=== PATIENT | female | born 1970 | race Caucasian/White ===

== ENCOUNTER 2016-12-03 23:37 | Emergency (ER) | payer SELFPAY ==
[~2016-12-03] VITALS: Ht 162.6 cm; Wt 117.9 kg
[2016-12-04 00:43] LABS: BASO # 0.1 x10^3/uL (0.0-0.2); BASO % 1 % (0-3); EOS % 2 % (0-3); HEMATOCRIT 40.4 % (36.0-47.0); HEMOGLOBIN 13.6 g/dL (12.0-15.5); LYMPH # 2.4 x10^3/uL (1.0-4.8); LYMPH % 25 % (24-48); MEAN CORPUSCULAR HEMOGLOBIN 31 pg (25-35); MEAN CORPUSCULAR HGB CONC 34 g/dL (31-37); MEAN CORPUSCULAR VOLUME 91 fL (79-100); MONO % 4 % (0-9); NEUT % 68 % (31-73); PLATELET COUNT 265 x10^3/uL (140-400); RED BLOOD COUNT 4.43 x10^6/uL (3.50-5.40); RED CELL DISTRIBUTION WIDTH 14.3 % (11.5-14.5); WHITE BLOOD COUNT 9.6 x10^3/uL (4.0-11.0)
[2016-12-04 00:44] LABS: BILIRUBIN,URINE NEGATIVE (NEG); GLUCOSE,URINE NEGATIVE (NEG); NITRITE,URINE NEGATIVE (NEG); PROTEIN,URINE NEGATIVE (NEG-TRACE); UROBILINOGEN,URINE 0.2 mg/dL (0.2 mg/dL)
[2016-12-04] MEDS ORDERED: MECLIZINE HCL 12.5 MG TABLET. PO ONE (00:45)
[2016-12-04] MEDS ORDERED: IPRATRPIUM/ALBUTEROL 0.5/2.5MG 3 ML NEBU. NEB ONE (00:45)
[2016-12-04 00:51] LABS: BACTERIA,URINE FEW /HPF (0-FEW); SQUAMOUS EPITHELIAL CELL,UR FEW /LPF
[2016-12-04 01:03] LABS: CALCIUM 8.8 mg/dL (8.5-10.1); CREATININE 0.8 mg/dL (0.6-1.0); GFR 77.2; POTASSIUM 4.3 mmol/L (3.5-5.1)
--- NOTE | 2016-12-04 01:10 | PHYS DOC ---
Past Medical History Past Medical History: Asthma, Diabetes-Type II Additional Past Medical Histor: obesity; seasonal allergies; vertigo Past Surgical History: Cholecystectomy, , Hysterectomy Additional Past Surgical Histo: c ection x 5, Smoking: Cigarettes Alcohol Use: None Drug Use: None Adult General Chief Complaint Chief Complaint: DIZZY/LIGHT HEADED HPI HPI Patient is a 46 year old female who presents with dizziness. She developed dizziness on Saturday. Intermittent periods worsens she standing and moving her head. Dull headache over her sinuses in the front. Pain is a 4-5. No nausea vomiting. Feels vertigo which is what she's had before. No change in her vision or double vision. No numbness to that or weakness to arms or legs or face. No difficulty walking. No following. She has noted increased problems with her seasonal allergies in her sinuses. No chest pain. She has increased and wheezing from her asthma. She does continue to smoke tobacco. She was an argument tonight with her significant other when this became acutely worse. Review of Systems Review of Systems Constitutional: Denies fever or chills Eyes: Denies change in visual acuity, redness, or eye pain HENT: POS nasal congestion and sinus pressure; NO sore throat Respiratory: Denies cough; POS shortness of breath and wheezing. Cardiovascular: No chest pain GI: Denies abdominal pain, nausea, vomiting, bloody stools or diarrhea : Denies dysuria or hematuria Musculoskeletal: Denies back pain or joint pain Integument: Denies rash or skin lesions Neurologic: POS frontal headache, NO focal weakness or sensory changes; NO syncope or seizure. Current Medications Current Medications Current Medications Medications (Trade) Dose Ordered Sig/Hayden Start Time Stop Time Status Last Admin Dose Admin Albuterol/ Ipratropium (Duoneb) 3 ml 1X ONCE 12/04/16 00:45 12/04/16 00:46 DC 12/04/16 00:44 3 ML Meclizine HCl (Antivert) 25 mg 1X ONCE 12/04/16 00:45 12/04/16 00:46 DC 12/04/16 00:51 25 MG Allergies Allergies Allergies Coded Allergies Type Severity Reaction Last Updated Verified Penicillins Allergy Intermediate Nausea and Vomiting 10/10/15 Yes Sulfa (Sulfonamide Antibiotics) Allergy Intermediate Nausea and Vomiting Yes doxycycline Allergy Intermediate Nausea and Vomiting 10/10/15 Yes Physical Exam Physical Exam Constitutional: Well developed, well nourished, no acute distress, non-toxic appearance. Ambulated without difficulty HENT: Normocephalic, atraumatic, tympanic membranes slightly dull bilaterally but no erythema. Bilateral external ears normal, oropharynx moist, no oral exudates, nose normal. Eyes: PERRLA, EOMI, conjunctiva normal, no discharge. Neck: Normal range of motion, no tenderness, supple, no stridor. No carotid bruits. Cardiovascular:Heart rate regular rhythm, no murmur Lungs & Thorax: Bilateral breath sounds with wheezing bilaterally. Moderate air flow. Abdomen: Bowel sounds normal, soft, no tenderness, no masses, no pulsatile masses. Skin: Warm, dry, no erythema, no rash. Back: No tenderness, no CVA tenderness. Extremities: No tenderness, no cyanosis, no clubbing, ROM intact, no edema. Neurologic: Alert and oriented X 3, normal motor function, normal sensory function, no focal deficits noted. Cranial nerves II through XII are grossly intact. No ataxia noted on finger to nose or heel to abbott. NIH stroke scale 0 Psychologic: Affect normal, judgement normal, mood normal. Current Patient Data Vital Signs Vital Signs Date Time Temp Pulse Resp B/P (MAP) Pulse Ox O2 Delivery O2 Flow Rate FiO2 12/04/16 01:30 79 18 94 12/04/16 00:05 97.8 125/60 (81) Room Air 97.8 Lab Values Laboratory Tests Test 12/04/16 00:15 12/04/16 00:35 Urine Collection Type Unknown Urine Color Yellow Urine Clarity Clear Urine pH 6.0 Urine Specific [place] <=1.005 Urine Protein Negative mg/dL (NEG-TRACE) Urine Glucose (UA) Negative mg/dL (NEG) Urine Ketones (Stick) Negative mg/dL (NEG) Urine Blood Moderate (NEG) Urine Nitrite Negative (NEG) Urine Bilirubin Negative (NEG) Urine Urobilinogen Dipstick 0.2 mg/dL (0.2 mg/dL) Urine Leukocyte Esterase Small (NEG) Urine RBC 1-2 /HPF (0-2) Urine WBC 5-10 /HPF (0-4) Urine Squamous Epithelial Cells Few /LPF Urine Bacteria Few /HPF (0-FEW) White Blood Count 9.6 x10^3/uL (4.0-11.0) Red Blood Count 4.43 x10^6/uL (3.50-5.40) Hemoglobin 13.6 g/dL (12.0-15.5) Hematocrit 40.4 % (36.0-47.0) Mean Corpuscular Volume 91 fL (79-100) Mean Corpuscular Hemoglobin 31 pg (25-35) Mean Corpuscular Hemoglobin Concent 34 g/dL (31-37) Red Cell Distribution Width 14.3 % (11.5-14.5) Platelet Count 265 x10^3/uL (140-400) Neutrophils (%) (Auto) 68 % (31-73) Lymphocytes (%) (Auto) 25 % (24-48) Monocytes (%) (Auto) 4 % (0-9) Eosinophils (%) (Auto) 2 % (0-3) Basophils (%) (Auto) 1 % (0-3) Neutrophils # (Auto) 6.5 x10^3uL (1.8-7.7) Lymphocytes # (Auto) 2.4 x10^3/uL (1.0-4.8) Monocytes # (Auto) 0.4 x10^3/uL (0.0-1.1) Eosinophils # (Auto) 0.2 x10^3/uL (0.0-0.7) Basophils # (Auto) 0.1 x10^3/uL (0.0-0.2) Sodium Level 136 mmol/L (136-145) Potassium Level 4.3 mmol/L (3.5-5.1) Chloride Level 101 mmol/L (98-107) Carbon Dioxide Level 27 mmol/L (21-32) Anion Gap 8 (6-14) Blood Urea Nitrogen 8 mg/dL (7-20) Creatinine 0.8 mg/dL (0.6-1.0) Estimated GFR (Cockcroft-Gault) 77.2 Glucose Level 211 mg/dL (70-99) H Calcium Level 8.8 mg/dL (8.5-10.1) Creatine Kinase 131 U/L (26-192) Creatine Kinase MB (Mass) < 0.5 ng/mL (0.0-3.6) Creatine Kinase MB Relative Index 0.4 % (0-4) Troponin I Quantitative < 0.017 ng/mL (0.000-0.055) PP-Azk-I-Type Natriuretic Peptide 75 pg/mL (0-124) Laboratory Tests 12/04/16 00:35 Laboratory Tests 12/04/16 00:35 EKG EKG EKG interpreted by myself at 0008 AM with normal sinus rhythm rate of 78. Nonspecific ST changes; no acute ST elevation. Radiology/Procedures Radiology/Procedures CXR interpreted by myself at 0125 am: Normal mediastinum, normal cardiac silhouette, normal lung senior, no pleural effusion, no infiltrate, no pneumothorax. [facility] [address] [place] [address] IMAGING REPORT Signed PATIENT: CHARISMA BARRAGAN ACCOUNT: [id number] : 1970 LOCATION: ER AGE: 46 SEX: F EXAM STATUS: REG ER ORD. PHYSICIAN: FLO MADRIGAL MD REASON: dizzy; sinusitits PROCEDURE: CT HEAD AND MAXILLOFACIAL WO CT HEAD AND MAXILLOFACIAL WO dated 12/04/2016 12:25 AM Indication: Dizziness.dizzy; sinusitits. Comparison: No comparison is available. Technique: Contiguous axial imaging the head was performed from skull base to vertex. In addition, axial imaging of the maxillofacial bones obtained with thin cut coronal and sagittal reconstruction. One or more of the following individualized dose reduction techniques were utilized for this examination: 1. Automated exposure control 2. Adjustment of the mA and/or kV according to patient size 3. Use of iterative reconstruction technique Findings: Ventricles and sulci are within normal limits for age. No midline shift or mass effect. Brain parenchyma is of normal attenuation. No hemorrhage or extra-axial collection. Posterior fossa and brainstem unremarkable. Asymmetric soft tissue density filling the right nasal cavity with distortion of the middle and inferior turbinates. Mild nasal septal deviation to the left. No bony destructive changes. The ostiomeatal units and infundibula are patent. No significant mucosal thickening or air-fluid level. Mastoid air cells and middle ears are clear. No significant soft tissue abnormality. IMPRESSION HEAD: 1. No evidence of acute intracranial hemorrhage or mass. IMPRESSION MAXILLOFACIAL: 1. Soft tissue density filling the right-sided nasal cavity, indeterminate. This could represent a large polyp or other nasal mass. Recommend physical exam correlation. 2. Mild nasal septal deviation to the left. 3. Otherwise no significant sinus disease. Electronically signed by: Tramaine Flower MD (12/04/2016 1:42 AM) [facility] DICTATED and SIGNED BY: TRAMAINE FLOWER MD DATE: 12/04/16 0139 CC: FLO MADRIGAL MD; UNKNOWN PCP NAME ~ Course & Med Decision Making Course & Med Decision Making Evaluated patient. Findings consistent with vertigo. NIHSS 0. CT ordered. UA is mildly positive. Duoneb given due to wheezing. Antivert dosed for vertigo ( patient has a ride). At [address] scanner. At 0155 AM: Ct results back. Head is negative and no sinuses (polyp noted). Does not meet criteria for antibiotics. Will place on antivert with follow up. Note: Urinalysis is mildly positive however patient has no symptoms. We'll hold on any antibiotic therapy at this point due to her multiple medical allergies. If she develops any symptoms well need repeat urinalysis. My differential diagnosis for dizziness sinusitis, vertigo, CVA, subarachnoid hemorrhage, cardiac arrthymia, pulmonary emboli, electrolyte disturbance, infection I have spoken with the patient and/or caregivers. I have explained the patient' s condition, diagnosis and treatment plan based on the information available to me at this time. I have answered the patient's and/or caregiver's questions and addressed any concerns. The patient and/or caregivers have as good an understanding of the patient's diagnosis, condition and treatment plan as can be expected at this point. The patient's condition is stable and appropriate for discharge from the emergency department. The patient will pursue further outpatient evaluation with the primary care physician or other designated or consulting physician as outlined in the discharge instructions. The patient and/or caregivers are agreeable to this plan of care and follow-up instructions have been explained in detail. The patient and/or caregivers have received these instructions in written format and have expressed an understanding of the discharge instructions. The patient and/or caregivers are aware that any significant change in condition or worsening of symptoms should prompt an immediate return to this or the closest emergency department or a call to 911. [place] Disclaimer Dragon Disclaimer This electronic medical record was generated, in whole or in part, using a voice recognition dictation system. Departure Departure Impression: Primary Impression: Vertigo Disposition: 01 HOME, SELF-CARE Condition: STABLE Referrals: UNKNOWN PCP NAME (PCP) Patient Instructions: Vertigo Scripts Meclizine Hcl (MECLIZINE HCL) 25 Mg Tablet 1 TAB PO PRN TID, #30 TAB Prov: FLO MADRIGAL MD 12/04/16 NIHSS NIHSS Administer stroke scale items in the order listed. Record performance in each category after each subscale exam. Do not go back and change scores. Follow directions provided for each exam technique. Scores should reflect what the patient does, not what the clinician thinks the patient can do. The clinician should record answers while administering the exam and work quickly. Except where indicated, the patient should not be coached (i.e., repeated requests to patient to make a special effort). PERFORMED AT 0030 AM by MYSELF (Dr Madrigal) 1a. Level of Consciousness: The shopping investigator must choose a response if a full evaluation is prevented by such obstacles as an endotracheal tube, language barrier, orotracheal trauma/bandages. A 3 is scored only if the patient makes no movement (other than reflexive posturing) in response to noxious stimulation. 0 = Alert; keenly responsive. 1 = Not alert; but arousable by minor stimulation to obey, answer, or respond. 2 = Not alert; requires repeated stimulation to attend, or is obtunded and requires strong or painful stimulation to make movements (not stereotyped). 3 = Responds only with reflex motor or autonomic effects or totally unresponsive, flaccid, and areflexic. 1b. LOC Questions: The patient is asked the month and his/her age. The answer must be correct - there is no partial credit for being close. Aphasic and stuporous patients who do not comprehend the questions will score 2. Patients unable to speak because of endotracheal intubation, orotracheal trauma, severe dysarthria from any cause, language barrier, or any other problem not secondary to aphasia are given a 1. It is important that only the initial answer be graded and that the examiner not "help" the patient with verbal or non-verbal cues. 0 = Answers both questions correctly. 1 = Answers one question correctly. 2 = Answers neither question correctly. 1c. LOC Commands: The patient is asked to open and close the eyes and then to audit consultant and release the non-paretic hand. Substitute another one step command if the hands cannot be used. Credit is given if an unequivocal attempt is made but not completed due to weakness. If the patient does not respond to command, the task should be demonstrated to him or her (pantomime), and the result scored (i.e., follows none, one or two commands). Patients with trauma, amputation, or other physical impediments should be given suitable one-step commands. Only the first attempt is scored. 0 = Performs both tasks correctly. 1 = Performs one task correctly. 2 = Performs neither task correctly. 2. Best Gaze: Only horizontal eye movements will be tested. Voluntary or reflexive (oculocephalic) eye movements will be scored, but caloric testing is not done. If the patient has a conjugate deviation of the eyes that can be overcome by voluntary or reflexive activity, the score will be 1. If a patient has an isolated peripheral nerve paresis (CN III, IV or ), score a 1. Gaze is testable in all aphasic patients. Patients with ocular trauma, bandages, pre-existing blindness, or other disorder of visual acuity or senior should be tested with reflexive movements, and a choice made by the shopping investigator. Establishing eye contact and then moving about the patient from side to side will occasionally clarify the presence of a partial gaze palsy. 0 = Normal. 1 = Partial gaze palsy; gaze is abnormal in one or both eyes, but forced deviation or total gaze paresis is not present. 2 = Forced deviation, or total gaze paresis not overcome by the oculocephalic maneuver. Interval: [ ] Baseline [ ] 2 hours post treatment [ ] 24 hours post onset of symptoms 20 minutes [ ] 7-10 days [ ] 3 months [ ] Other ( ) 3. Visual: Visual senior (upper and lower quadrants) are tested by confrontation, using finger counting or visual threat, as appropriate. Patients may be encouraged, but if they look at the side of the moving fingers appropriately, this can be scored as normal. If there is unilateral blindness or enucleation, visual senior in the remaining eye are scored. Score 1 only if a clear-cut asymmetry, including quadrantanopia, is found. If patient is blind from any cause, score 3. Double simultaneous stimulation is performed at this point. If there is extinction, patient receives a 1, and the results are used to respond to item 11. 0 = No visual loss. 1 = Partial hemianopia. 2 = Complete hemianopia. 3 = Bilateral hemianopia (blind including cortical blindness). 4. Facial Palsy: Ask - or use pantomime to encourage - the patient to show teeth or raise eyebrows and close eyes. Score symmetry of grimace in response to noxious stimuli in the poorly responsive or non-comprehending patient. If facial trauma/bandages, orotracheal tube, tape or other physical barriers obscure the face, these should be removed to the extent possible. 0 = Normal symmetrical movements. 1 = Minor paralysis (flattened nasolabial fold, asymmetry on smiling). 2 = Partial paralysis (total or near-total paralysis of lower face). 3 = Complete paralysis of one or both sides (absence of facial movement in the upper and lower face). 5. Motor Arm: The limb is placed in the appropriate position: extend the arms (palms down) 90 degrees (if sitting) or 45 degrees (if supine). Drift is scored if the arm falls before 10 seconds. The aphasic patient is encouraged using urgency in the voice and pantomime, but not noxious stimulation. Each limb is tested in turn, beginning with the non-paretic arm. Only in the case of amputation or joint fusion at the shoulder, the examiner should record the score as untestable (UN), and clearly write the explanation for this choice. 0 = No drift; limb holds 90 (or 45) degrees for full 10 seconds. 1 = Drift; limb holds 90 (or 45) degrees, but drifts down before full 10 seconds ; does not hit bed or other support. 2 = Some effort against gravity; limb cannot get to or maintain (if cued) 90 ( or 45) degrees, drifts down to bed, but has some effort against gravity. 3 = No effort against gravity; limb falls. 4 = No movement. UN = Amputation or joint fusion, explain: 5a. Left Arm: 0 = No drift; limb holds 90 (or 45) degrees for full 10 seconds. 5b. Right Arm 0 = No drift; limb holds 90 (or 45) degrees for full 10 seconds. 6. Motor Leg: The limb is placed in the appropriate position: hold the leg at 30 degrees (always tested supine). Drift is scored if the leg falls before 5 seconds. The aphasic patient is encouraged using urgency in the voice and pantomime, but not noxious stimulation. Each limb is tested in turn, beginning with the non-paretic leg. Only in the case of amputation or joint fusion at the hip, the examiner should record the score as untestable (UN), and clearly write the explanation for this choice. 0 = No drift; leg holds 30-degree position for full 5 seconds. 1 = Drift; leg falls by the end of the 5-second period but does not hit bed. 2 = Some effort against gravity; leg falls to bed by 5 seconds, but has some effort against gravity. 3 = No effort against gravity; leg falls to bed immediately. 4 = No movement. UN = Amputation or joint fusion, explain: 6a. Left Leg 0 = No drift; limb holds 90 (or 45) degrees for full 10 seconds. 6b. Right Leg 0 = No drift; limb holds 90 (or 45) degrees for full 10 seconds. Interval: [ ] Baseline [ ] 2 hours post treatment [ ] 24 hours post onset of symptoms 20 minutes [ ] 7-10 days [ ] 3 months [ ] Other ( ) 7. Limb Ataxia: This item is aimed at finding evidence of a unilateral cerebellar lesion. Test with eyes open. In case of visual defect, ensure testing is done in intact visual field. The hgffdv-leth-vjabjr and heel-abbott tests are performed on both sides, and ataxia is scored only if present out of proportion to weakness. Ataxia is absent in the patient who cannot understand or is paralyzed. Only in the case of amputation or joint fusion, the examiner should record the score as untestable (UN), and clearly write the explanation for this choice. In case of blindness, test by having the patient touch nose from extended arm position. 0 = Absent. 1 = Present in one limb. 2 = Present in two limbs. UN = Amputation or joint fusion, explain: 8. Sensory: Sensation or grimace to pinprick when tested, or withdrawal from noxious stimulus in the obtunded or aphasic patient. Only sensory loss attributed to stroke is scored as abnormal and the examiner should test as many body areas (arms [not hands], legs, trunk, face) as needed to accurately check for hemisensory loss. A score of 2, "severe or total sensory loss," should only be given when a severe or total loss of sensation can be clearly demonstrated. Stuporous and aphasic patients will, therefore, probably score 1 or 0. The patient with brainstem stroke who has bilateral loss of sensation is scored 2. If the patient does not respond and is quadriplegic, score 2. Patients in a coma (item 1a=3) are automatically given a 2 on this item. 0 = Normal; no sensory loss. 1 = Dbee-ft-mizzzuxo sensory loss; patient feels pinprick is less sharp or is dull on the affected side; or there is a loss of superficial pain with pinprick , but patient is aware of being touched. 2 = Severe to total sensory loss; patient is not aware of being touched in the face, arm, and leg. 9. Best Language: A great deal of information about comprehension will be obtained during the preceding sections of the examination. For this scale item, the patient is asked to describe what is happening in the attached picture, to name the items on the attached naming sheet and to read from the attached list of sentences. Comprehension is judged from responses here, as well as to all of the commands in the preceding general neurological exam. If visual loss interferes with the tests, ask the patient to identify objects placed in the hand, repeat, and produce speech. The intubated patient should be asked to write. The patient in a coma (item 1a=3) will automatically score 3 on this item. The examiner must choose a score for the patient with stupor or limited cooperation, but a score of 3 should be used only if the patient is mute and follows no one-step commands. 0 = No aphasia; normal. 1 = Zakl-bs-gsuxyntm aphasia; some obvious loss of fluency or facility of comprehension, without significant limitation on ideas expressed or form of expression. Reduction of speech and/or comprehension, however, makes conversation about provided materials difficult or impossible. For example, in conversation about provided materials, examiner can identify picture or naming card content from patient's response. 2 = Severe aphasia; all communication is through fragmentary expression; great need for inference, questioning, and guessing by the listener. Range of information that can be exchanged is limited; listener carries burden of communication. Examiner cannot identify materials provided from patient response. 3 = Mute, global aphasia; no usable speech or auditory comprehension. 10. Dysarthria: If patient is thought to be normal, an adequate sample of speech must be obtained by asking patient to read or repeat words from the attached list. If the patient has severe aphasia, the clarity of articulation of spontaneous speech can be rated. Only if the patient is intubated or has other physical barriers to producing speech, the examiner should record the score as untestable (UN), and clearly write an explanation for this choice. Do not tell the patient why he or she is being tested. 0 = Normal. 1 = Fzyf-wu-oozsphmb dysarthria; patient slurs at least some words and, at worst , can be understood with some difficulty. 2 = Severe dysarthria; patient's speech is so slurred as to be unintelligible in the absence of or out of proportion to any dysphasia, or is mute/anarthric. UN = Intubated or other physical barrier, explain: Interval: [ ] Baseline [ ] 2 hours post treatment [ ] 24 hours post onset of symptoms 20 minutes [ ] 7-10 days [ ] 3 months [ ] Other ( ) 11. Extinction and Inattention (formerly Neglect): Sufficient information to identify neglect may be obtained during the prior testing. If the patient has a severe visual loss preventing visual double simultaneous stimulation, and the cutaneous stimuli are normal, the score is normal. If the patient has aphasia but does appear to attend to both sides, the score is normal. The presence of visual spatial neglect or anosagnosia may also be taken as evidence of abnormality. Since the abnormality is scored only if present, the item is never untestable. 0 = No abnormality. 1 = Visual, tactile, auditory, spatial, or personal inattention or extinction to bilateral simultaneous stimulation in one of the sensory modalities. 2 = Profound lionel-inattention or extinction to more than one modality; does not recognize own hand or orients to only one side of space. FLO MADRIGAL MD Dec 04, 2016 01:10
[2016-12-04 01:17] LABS: CKMB MASS < 0.5 ng/mL (0.0-3.6); CREATINE KINASE 131 U/L (26-192)
[2016-12-04 01:30] VITALS: BP 124/74
--- NOTE | 2016-12-04 01:46 | RAD ---
CT HEAD AND MAXILLOFACIAL WO dated 12/04/2016 12:25 AM Indication: Dizziness.dizzy; sinusitits. Comparison: No comparison is available. Technique: Contiguous axial imaging the head was performed from skull base to vertex. In addition, axial imaging of the maxillofacial bones obtained with thin cut coronal and sagittal reconstruction. One or more of the following individualized dose reduction techniques were utilized for this examination: 1. Automated exposure control 2. Adjustment of the mA and/or kV according to patient size 3. Use of iterative reconstruction technique Findings: Ventricles and sulci are within normal limits for age. No midline shift or mass effect. Brain parenchyma is of normal attenuation. No hemorrhage or extra-axial collection. Posterior fossa and brainstem unremarkable. Asymmetric soft tissue density filling the right nasal cavity with distortion of the middle and inferior turbinates. Mild nasal septal deviation to the left. No bony destructive changes. The ostiomeatal units and infundibula are patent. No significant mucosal thickening or air-fluid level. Mastoid air cells and middle ears are clear. No significant soft tissue abnormality. IMPRESSION HEAD: 1. No evidence of acute intracranial hemorrhage or mass. IMPRESSION MAXILLOFACIAL: 1. Soft tissue density filling the right-sided nasal cavity, indeterminate. This could represent a large polyp or other nasal mass. Recommend physical exam correlation. 2. Mild nasal septal deviation to the left. 3. Otherwise no significant sinus disease. Electronically signed by: Tramaine Singh MD (12/04/2016 1:42 AM) [id number]
[2016-12-04] MEDS ORDERED: MECL25TA3 PO (01:57)
--- NOTE | 2016-12-04 07:39 | RAD ---
Portable chest, 12/04/2016: History: Dizziness Comparison is made to a study from 08/04/2006. The heart size and pulmonary vascularity are normal. No pulmonary infiltrates are seen. There is no evidence of pleural fluid. IMPRESSION: No acute cardiopulmonary abnormality is detected.
--- NOTE | 2016-12-04 10:32 | EKG ---
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
== END 2016-12-04 02:03 | disposition home or self-care (01) ==
LOC: ER 23:37
DX: R42 Dizziness and giddiness (principal); J45.909 Unspecified asthma, uncomplicated; E11.9 Type 2 diabetes mellitus without complications; Z90.49 Acquired absence of other specified parts of digestive tract; Z90.710 Acquired absence of both cervix and uterus; F17.210 Nicotine dependence, cigarettes, uncomplicated; Z88.0 Allergy status to penicillin; Z88.2 Allergy status to sulfonamides; Z88.1 Allergy status to other antibiotic agents
CPT/HCPCS: 36415; 70450; 70486; 71010; 80048; 81001; 82553; 83880; 84484; 85025; 87086; 93005; 94640; 99285; J7620; J8597; 87186

== ENCOUNTER 2018-01-30 17:07 | Emergency (ER) | payer SELFPAY ==
[~2018-01-30] VITALS: Ht 162.6 cm; Wt 111.1 kg
[~2018-01-30 17:07] MED LIST: MECL25TA3 PO
[2018-01-30 19:53] VITALS: BP 140/90
[2018-01-30] MEDS ORDERED: ALBUTEROL SULFATE 2.5 MG/3 ML NEBU. NEB ONE (20:00)
[2018-01-30] MEDS ORDERED: BENZ100C PO (21:20)
[2018-01-30] MEDS ORDERED: ALBU2.5V8 INH (21:20)
[2018-01-30] MEDS ORDERED: PRED50TA PO (21:20)
--- NOTE | 2018-01-30 21:20 | PHYS DOC ---
Past Medical History Past Medical History: Asthma, Diabetes-Type II Additional Past Medical Histor: obesity; seasonal allergies; vertigo Past Surgical History: Cholecystectomy, , Hysterectomy Additional Past Surgical Histo: c ection x 5, Smoking: Cigarettes, Less than 1pk/day Alcohol Use: None Drug Use: Marijuana Adult General Chief Complaint Chief Complaint: SHORTNESS OF BREATH HPI HPI Patient is a 47 year old female who presents to the ER with complaints of a dry cough and shortness of breath for the last 3 days. Pt reports a hx of T2DM and states that her blood sugars have been around 100 recently. She denies any abdominal pain, nausea, vomiting, diarrhea, fever, sore throat, runny nose or body aches. She reports some nasal congestion and intermittent wheezing. Review of Systems Review of Systems Constitutional: Denies fever or chills [] HENT: See HPI Respiratory: See HPI Cardiovascular: No additional information not addressed in HPI [] GI: Denies abdominal pain, nausea, vomiting,or diarrhea [] Musculoskeletal: Denies back pain or joint pain [] Integument: Denies rash or skin lesions [] Neurologic: Denies headache, focal weakness or sensory changes [] All other systems were reviewed and found to be within normal limits, except as documented in this note. Current Medications Current Medications Current Medications Medications (Trade) Dose Ordered Sig/Hayden Start Time Stop Time Status Last Admin Dose Admin Albuterol Sulfate (Ventolin Neb Soln) 2.5 mg 1X ONCE 01/30/18 20:00 01/30/18 20:01 DC 01/30/18 20:11 2.5 MG Prednisone (Prednisone) 50 mg 1X ONCE 01/30/18 21:30 01/30/18 21:30 DC 01/30/18 21:19 50 MG Allergies Allergies Allergies Coded Allergies Type Severity Reaction Last Updated Verified Penicillins Allergy Intermediate Nausea and Vomiting 10/10/15 Yes Sulfa (Sulfonamide Antibiotics) Allergy Intermediate Nausea and Vomiting Yes doxycycline Allergy Intermediate Nausea and Vomiting 10/10/15 Yes Physical Exam Physical Exam Constitutional: Well developed, well nourished, no acute distress, non-toxic appearance. [] HENT: Normocephalic, atraumatic, bilateral external ears normal, bilateral TMs normal, posterior pharynx normal, oropharynx moist, no oral exudates, nose normal. [] Eyes: conjunctiva normal, no discharge. [] Neck: Normal range of motion, no tenderness, supple, no stridor. [] Cardiovascular:Heart rate regular rhythm, no murmur [] Lungs & Thorax: Bilateral breath sounds coarse in all senior to auscultation [] Skin: Warm, dry, no erythema, no rash. [] Extremities: No cyanosis, no clubbing, ROM intact, no edema. [] Neurologic: Alert and oriented X 3, normal motor function, normal sensory function, no focal deficits noted. [] Psychologic: Affect normal, judgement normal, mood normal. [] Current Patient Data Vital Signs Vital Signs Date Time Temp Pulse Resp B/P (MAP) Pulse Ox O2 Delivery O2 Flow Rate FiO2 01/30/18 19:53 98.3 86 16 140/90 (107) 97 Room Air 98.3 Lab Values Laboratory Tests Test 01/30/18 21:11 Glucose (Fingerstick) 206 mg/dL (70-99) H EKG EKG [] Radiology/Procedures Radiology/Procedures [] Course & Med Decision Making Course & Med Decision Making Pertinent Labs and Imaging studies reviewed. (See chart for details) Dx: URI, bronchitis with asthma Prescriptions for tessalon perrles, albuterol inhaler and prednisone. Pt instructed to check blood sugars routinely and advised that steriod may elevate blood sugars. Avoid airway irritants, follow up with PCP , return to ER if sx worsen. Patient verbalized an understanding of home care, medications, follow-up, and return to ED instructions and was in agreement with the plan of care. Staff Physician Addendum: I was working in the ER during the course of this patient's visit. I was available for consultation as needed, but I was not directly involved in the care of this patient. [] Dragon Disclaimer Dragon Disclaimer This electronic medical record was generated, in whole or in part, using a voice recognition dictation system. Departure Departure Impression: Primary Impression: Bronchitis with asthma, acute Additional Impression: URI (upper respiratory infection) Disposition: 01 HOME, SELF-CARE Condition: STABLE Referrals: NO PCP (PCP) Patient Instructions: Acute Bronchitis, [id number] Additional Instructions: Fill prescription(s) and use as directed. Taking a steroid will cause your blood sugars to be elevated, be sure to monitor your blood sugar frequently while taking this medication. Cool mist humidifier in room at bedtime. Tylenol or ibuprofen prn pain/fever. Increase clear fluids. Avoid triggers such as smoke , animal dander, fragrance, dust, and pollen. Follow-up with your primary care doctor if symptoms persist, return to the ER if symptoms worsen. Scripts Benzonatate (TESSALON PERLE) 100 Mg Capsule 1 CAP PO TID PRN for COUGH, #21 CAP 0 Refills Prov: JASON ZURITA LAYOUT DESIGNER 01/30/18 Albuterol Sulfate (PROAIR HFA INHALER) 8.5 Gm Hfa.aer.ad 1-2 PUFF INH PRN Q4-6HRS PRN for SHORTNESS OF BREATH for 30 Days, #1 INHALER 0 Refills Prov: JASON ZURITA APRN 01/30/18 Prednisone (PREDNISONE) 50 Mg Tablet 1 TAB PO DAILY, #4 TAB 0 Refills Prov: JASON ZURITA APRN 01/30/18 Problem Qualifiers Additional Impression: URI (upper respiratory infection) URI type: unspecified URI Qualified Codes: J06.9 - Acute upper respiratory infection, unspecified JASON ZURITA APRN Jan 30, 2018 21:20 JACQUIE CONDE MD Feb 05, 2018 06:08
[2018-01-30] MEDS ORDERED: predniSONE 20 MG TABLET PO ONE (21:30)
== END 2018-01-30 21:24 | disposition home or self-care (01) ==
LOC: ER 17:07
DX: J45.909 Unspecified asthma, uncomplicated (principal); J06.9 Acute upper respiratory infection, unspecified; E11.9 Type 2 diabetes mellitus without complications; F17.210 Nicotine dependence, cigarettes, uncomplicated; E66.9 Obesity, unspecified; Z68.41 Body mass index [BMI] 40.0-44.9, adult; Z88.1 Allergy status to other antibiotic agents; Z88.0 Allergy status to penicillin; Z88.2 Allergy status to sulfonamides
CPT/HCPCS: 82962; 94640; 99283; J7512; J7613

== ENCOUNTER 2018-06-06 21:42 | Emergency (ER) | payer SELFPAY ==
[~2018-06-06] VITALS: Ht 165.1 cm; Wt 120.2 kg
[~2018-06-06 21:42] MED LIST changes: +ALBU2.5V8 INH; +BENZ100C PO; +PRED50TA PO
[2018-06-06 22:30] LABS: BASO # 0.1 x10^3/uL (0.0-0.2); BASO % 1 % (0-3); EOS # 0.3 x10^3/uL (0.0-0.7); EOS % 3 % (0-3); HEMATOCRIT 39.2 % (36.0-47.0); HEMOGLOBIN 13.4 g/dL (12.0-15.5); LYMPH # 3.5 x10^3/uL (1.0-4.8); LYMPH % 33 % (24-48); MEAN CORPUSCULAR HEMOGLOBIN 31 pg (25-35); MEAN CORPUSCULAR HGB CONC 34 g/dL (31-37); MEAN CORPUSCULAR VOLUME 91 fL (79-100); MONO # 0.4 x10^3/uL (0.0-1.1); MONO % 3 % (0-9); NEUT # 6.4 x10^3uL (1.8-7.7); NEUT % 60 % (31-73); PLATELET COUNT 296 x10^3/uL (140-400); RED BLOOD COUNT 4.32 x10^6/uL (3.50-5.40); RED CELL DISTRIBUTION WIDTH 14.3 % (11.5-14.5); WHITE BLOOD COUNT 10.8 x10^3/uL (4.0-11.0)
[2018-06-06] MEDS ORDERED: ONDANSETRON PF 4 MG/2 ML VIAL. IV ONE (22:30)
[2018-06-06] MEDS ORDERED: ASPIRIN 325 MG TABLET PO ONE (22:30)
[2018-06-06 22:31] LABS: BILIRUBIN,URINE NEGATIVE (NEG); CLARITY,URINE CLEAR; COLOR,URINE YELLOW; NITRITE,URINE NEGATIVE (NEG); PH,URINE 6.5; PROTEIN,URINE NEGATIVE (NEG-TRACE); UROBILINOGEN,URINE 0.2 mg/dL (0.2 mg/dL)
[2018-06-06 22:35] LABS: BACTERIA,URINE FEW /HPF (0-FEW); RBC,URINE 0 /HPF (0-2); SQUAMOUS EPITHELIAL CELL,UR MOD /LPF
[2018-06-06 23:19] LABS: CALCIUM 9.5 mg/dL (8.5-10.1); CREATININE 0.9 mg/dL (0.6-1.0); GFR 67.1; POTASSIUM 3.5 mmol/L (3.5-5.1)
[2018-06-06 23:24] LABS: ALBUMIN 3.1 g/dL (3.4-5.0); ALBUMIN/GLOBULIN RATIO 0.8 (1.0-1.7); MAGNESIUM 1.7 mg/dL (1.8-2.4); TOTAL BILIRUBIN 0.2 mg/dL (0.2-1.0); TOTAL PROTEIN 7.1 g/dL (6.4-8.2)
[2018-06-07] MEDS ORDERED: BUTA1CAP31 PO (00:26)
[2018-06-07] MEDS ORDERED: ONDA4TAB7 PO (00:26)
--- NOTE | 2018-06-07 00:26 | PHYS DOC ---
Past Medical History Past Medical History: Asthma, Diabetes-Type II Additional Past Medical Histor: obesity; seasonal allergies; vertigo Past Surgical History: Cholecystectomy, , Hysterectomy Additional Past Surgical Histo: c ection x 5, Alcohol Use: None Drug Use: Marijuana, Methamphetamine Adult General Chief Complaint Chief Complaint: HEADACHE HPI HPI Patient is a 47 year old F who comes to ER with initial complaint of headache. Once back in exam room she also reports she has had chest pain for the last 48 hours in her mid chest without radiation. She also has noticed tingling in mariaelena legs. Pt reports a lot of home stressors and lack of sleep. Review of Systems Review of Systems Constitutional: Denies fever or chills [] Eyes: Denies change in visual acuity, redness, or eye pain [] HENT: Denies nasal congestion or sore throat. Respiratory: Denies cough or shortness of breath [] Cardiovascular: Reports chest pain. GI: Denies abdominal pain, vomiting, bloody stools or diarrhea. Reports nausea. : Denies dysuria or hematuria [] Musculoskeletal: Denies back pain or joint pain [] Integument: Denies rash or skin lesions [] Neurologic: No Focal weakness or sensory changes. Reports headache. Reports ti ngling in B legs. All other systems were reviewed and found to be within normal limits, except as documented in this note. Current Medications Current Medications Current Medications Medications (Trade) Dose Ordered Sig/Hayden Start Time Stop Time Status Last Admin Dose Admin Aspirin (Joyce Aspirin) 325 mg 1X ONCE 06/06/18 22:30 06/06/18 22:31 DC 06/06/18 22:51 325 MG Magnesium Oxide (Magnesium Oxide) 400 mg DAILY 06/07/18 00:45 06/07/18 01:05 DC 06/07/18 00:33 400 MG Morphine Sulfate (Morphine Sulfate) 4 mg 1X ONCE 06/07/18 00:30 06/07/18 00:31 DC Ondansetron HCl (Zofran) 4 mg 1X ONCE 06/06/18 22:30 06/06/18 22:31 DC 06/06/18 22:52 4 MG Allergies Allergies Allergies Coded Allergies Type Severity Reaction Last Updated Verified Penicillins Allergy Intermediate Nausea and Vomiting 10/10/15 Yes Sulfa (Sulfonamide Antibiotics) Allergy Intermediate Nausea and Vomiting 10/10/15 Yes doxycycline Allergy Intermediate Nausea and Vomiting 10/10/15 Yes Physical Exam Physical Exam Constitutional: Well developed, well nourished, no acute distress, non-toxic appearance. [] HENT: Normocephalic, atraumatic, bilateral external ears normal, oropharynx moist, no oral exudates, nose normal. [] Eyes: PERRLA, EOMI, conjunctiva normal, no discharge. [] Neck: Normal range of motion, no tenderness, supple, no stridor. [] Cardiovascular:Heart rate regular rhythm, no murmur [] Lungs & Thorax: Bilateral breath sounds clear to auscultation [] Abdomen: Bowel sounds normal, soft, no tenderness, no masses, no pulsatile masses. [] Skin: Warm, dry, no erythema, no rash. [] Back: No tenderness, no CVA tenderness. [] Extremities: No tenderness, no cyanosis, no clubbing, ROM intact, no edema. [] Neurologic: Alert and oriented X 3, normal motor function, normal sensory function, no focal deficits noted. [] Psychologic: Affect normal, judgement normal, mood normal. [] Normal exam, no neurological deficits. Appears well. Current Patient Data Vital Signs Vital Signs Date Time Temp Pulse Resp B/P (MAP) Pulse Ox O2 Delivery O2 Flow Rate FiO2 06/07/18 00:37 75 95 06/06/18 22:05 98.3 20 156/72 (100) Room Air 98.3 Lab Values Laboratory Tests Test 06/06/18 20:20 06/06/18 21:46 06/06/18 22:24 06/06/18 22:50 White Blood Count 10.8 x10^3/uL (4.0-11.0) Red Blood Count 4.32 x10^6/uL (3.50-5.40) Hemoglobin 13.4 g/dL (12.0-15.5) Hematocrit 39.2 % (36.0-47.0) Mean Corpuscular Volume 91 fL (79-100) Mean Corpuscular Hemoglobin 31 pg (25-35) Mean Corpuscular Hemoglobin Concent 34 g/dL (31-37) Red Cell Distribution Width 14.3 % (11.5-14.5) Platelet Count 296 x10^3/uL (140-400) Neutrophils (%) (Auto) 60 % (31-73) Lymphocytes (%) (Auto) 33 % (24-48) Monocytes (%) (Auto) 3 % (0-9) Eosinophils (%) (Auto) 3 % (0-3) Basophils (%) (Auto) 1 % (0-3) Neutrophils # (Auto) 6.4 x10^3uL (1.8-7.7) Lymphocytes # (Auto) 3.5 x10^3/uL (1.0-4.8) Monocytes # (Auto) 0.4 x10^3/uL (0.0-1.1) Eosinophils # (Auto) 0.3 x10^3/uL (0.0-0.7) Basophils # (Auto) 0.1 x10^3/uL (0.0-0.2) Urine Collection Type Unknown Urine Color Yellow Urine Clarity Clear Urine pH 6.5 Urine Specific Brady 1.010 Urine Protein Negative mg/dL (NEG-TRACE) Urine Glucose (UA) Negative mg/dL (NEG) Urine Ketones (Stick) Negative mg/dL (NEG) Urine Blood Negative (NEG) Urine Nitrite Negative (NEG) Urine Bilirubin Negative (NEG) Urine Urobilinogen Dipstick 0.2 mg/dL (0.2 mg/dL) Urine Leukocyte Esterase Trace (NEG) Urine RBC 0 /HPF (0-2) Urine WBC 1-4 /HPF (0-4) Urine Squamous Epithelial Cells Mod /LPF Urine Bacteria Few /HPF (0-FEW) Urine Mucus Slight /LPF POC Urine HCG, Qualitative Hcg negative (Negative) Sodium Level 138 mmol/L (136-145) Potassium Level 3.5 mmol/L (3.5-5.1) Chloride Level 102 mmol/L (98-107) Carbon Dioxide Level 29 mmol/L (21-32) Anion Gap 7 (6-14) Blood Urea Nitrogen 9 mg/dL (7-20) Creatinine 0.9 mg/dL (0.6-1.0) Estimated GFR (Cockcroft-Gault) 67.1 BUN/Creatinine Ratio 10 (6-20) Glucose Level 251 mg/dL (70-99) H Calcium Level 9.5 mg/dL (8.5-10.1) Magnesium Level 1.7 mg/dL (1.8-2.4) L Total Bilirubin 0.2 mg/dL (0.2-1.0) Aspartate Amino Transferase (AST) 10 U/L (15-37) L Alanine Aminotransferase (ALT) 24 U/L (14-59) Alkaline Phosphatase 93 U/L (46-116) Creatine Kinase 35 U/L (26-192) Creatine Kinase MB (Mass) 0.5 ng/mL (0.0-3.6) Creatine Kinase MB Relative Index 1.4 % (0-4) Troponin I Quantitative < 0.017 ng/mL (0.000-0.055) Total Protein 7.1 g/dL (6.4-8.2) Albumin 3.1 g/dL (3.4-5.0) L Albumin/Globulin Ratio 0.8 (1.0-1.7) L Laboratory Tests 06/06/18 20:20 Laboratory Tests 06/06/18 22:50 EKG EKG NSR, 80bpm, no STEMI reviewed by Dr. Shirley Radiology/Procedures Radiology/Procedures [] Course & Med Decision Making Course & Med Decision Making Pertinent Labs and Imaging studies reviewed. (See chart for details) Blood glucose elevated and magnesium mildly low, replaced in ER. Pt's TOLBERT and chest pain resolved in ER and EKG, CXR and cardiac enzymes reassuring at this time. Discussed need for pt to fu with PCP and to return if symptoms worsen at anytime. Dragon Disclaimer Dragon Disclaimer This electronic medical record was generated, in whole or in part, using a voice recognition dictation system. Departure Departure Impression: Primary Impression: Headache Additional Impressions: Chest pain Hypomagnesemia Disposition: HOME, SELF-CARE Condition: IMPROVED Referrals: NO PCP (PCP) Patient Instructions: Chest Pain (Nonspecific), [id number], General Headache Without Cause, Hypomagnesemia Additional Instructions: Push fluids and rest. Follow up with your doctor. Monitor your blood sugar closely. Return to ER if symptoms worsen at anytime. Scripts Butalbital/Aspirin/Caffeine (FIORINAL 50-325-40 MG CAPSULE) 1 Each Capsule 1 EACH PO Q6-8HRS PRN for HEADACHE, #15 CAP Prov: RYANNE ARCEO 06/07/18 Ondansetron Hcl (ZOFRAN) 4 Mg Tablet 1 TAB PO Q6HRS PRN for NAUSEA, #10 TAB Prov: RYANNE ARCEO 06/07/18 Problem Qualifiers RYANNE ARCEO Jun 07, 2018 00:26
[2018-06-07] MEDS ORDERED: MORPHINE SULFATE 4 MG/ML VIAL. IV ONE (00:30)
[2018-06-07 00:37] VITALS: BP 136/64
[2018-06-07] MEDS ORDERED: MAGNESIUM OXIDE 400 MG TABLET PO SCH ×2 (00:45→01:00)
--- NOTE | 2018-06-07 08:00 | RAD ---
CHEST AP ONLY History: CHEST PAIN, history of asthma Comparison: 12/04/2016 Findings: Single view of the chest is submitted. There is no infiltrate, pneumothorax, or effusion. The pericardial cardiac silhouette is within normal limits in size. Impression: 1. There is no evidence of acute cardiopulmonary disease. Electronically signed by: Wilmer Rico MD (06/07/2018 7:57 AM) [facility]
--- NOTE | 2018-06-07 15:06 | EKG ---
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
== END 2018-06-07 00:55 | disposition home or self-care (01) ==
LOC: ER 21:42
DX: R51 Headache (principal); R07.89 Other chest pain; E83.42 Hypomagnesemia; R20.2 Paresthesia of skin; J45.909 Unspecified asthma, uncomplicated; E11.9 Type 2 diabetes mellitus without complications; E66.9 Obesity, unspecified; Z68.41 Body mass index [BMI] 40.0-44.9, adult; Z90.49 Acquired absence of other specified parts of digestive tract; Z90.710 Acquired absence of both cervix and uterus; Z98.890 Other specified postprocedural states; Z79.82 Long term (current) use of aspirin; Z88.0 Allergy status to penicillin; Z88.2 Allergy status to sulfonamides; Z88.1 Allergy status to other antibiotic agents
CPT/HCPCS: 36415; 71045; 80053; 81001; 81025; 82553; 83735; 84484; 85025; 87086; 93005; 96374; 99285; J2405

== ENCOUNTER 2019-09-03 06:06 | Emergency (ER) | payer SELFPAY ==
[~2019-09-03] VITALS: Ht 162.6 cm; Wt 113.6 kg
[~2019-09-03 06:06] MED LIST changes: +BUTA1CAP31 PO; +MECL-75 PO; -MECL25TA3 PO; +ONDA4TAB7 PO
[2019-09-03 06:26] LABS: BILIRUBIN,URINE NEGATIVE (NEG); CLARITY,URINE CLEAR; COLOR,URINE YELLOW; NITRITE,URINE NEGATIVE (NEG); PROTEIN,URINE NEGATIVE (NEG-TRACE); UROBILINOGEN,URINE 0.2 mg/dL (0.2 mg/dL)
--- NOTE | 2019-09-03 06:48 | PHYS DOC ---
Past Medical History Past Medical History: Asthma, Diabetes-Type II Additional Past Medical Histor: obesity; seasonal allergies; vertigo Past Surgical History: Cholecystectomy, (x5), Hysterectomy Smoking Status: Current Every Day Smoker Alcohol Use: None Drug Use: Marijuana, Methamphetamine General Adult EDM: Chief Complaint: BLOOD IN URINE HPI: HPI: Patient is a 49-year-old female presents with report of dysuria and increased urinary frequency x3 days. Reports today noted some "blood "in her urine. Patient did trial Pyridium. Denies fever or chills. Denies trauma. Denies flank pain. Denies nausea or vomiting. Denies use of blood thinners. Review of Systems: Review of Systems: Constitutional: Denies fever or chills Eyes: Denies redness or eye pain HENT: Denies nasal congestion or sore throat Respiratory: Denies cough or shortness of breath Cardiovascular: Denies chest pain or palpitations GI: Denies abdominal pain, nausea, or vomiting : Reports dysuria, hematuria, and urinary frequency Musculoskeletal: Denies back pain or joint pain Integument: Denies rash or skin lesions Neurologic: Denies headache, focal weakness or sensory changes Complete systems were reviewed and found to be within normal limits, except as documented in this note. Allergies: Allergies: Allergies Coded Allergies Type Severity Reaction Last Updated Verified Penicillins Allergy Intermediate Nausea and Vomiting 10/10/15 Yes Sulfa (Sulfonamide Antibiotics) Allergy Intermediate Nausea and Vomiting 10/10/15 Yes doxycycline Allergy Intermediate Nausea and Vomiting 10/10/15 Yes Physical Exam: PE: Constitutional: Well developed, well nourished, no acute distress, non-toxic a ppearance HENT: Normocephalic, atraumatic Eyes: Conjunctiva normal, no discharge Neck: Normal range of motion, supple Lungs & Thorax: No respiratory distress, equal chest rise and fall Abdomen: Soft, suprapubic tenderness, no guarding/rebound tenderness/distention Skin: Warm, dry, no erythema, no rash Back: No tenderness, no CVA tenderness Extremities: No tenderness, ROM intact, no edema Neurologic: Alert and oriented X 3, no focal deficits noted Psychologic: Affect normal, judgment normal EKG: EKG: [] Radiology/Procedures: Radiology/Procedures: [] Course & Med Decision Making: Course & Med Decision Making Pertinent Lab studies reviewed. (See chart for details) Patient presents with HPI and physical exam concerning for UTI. No flank pain appreciated. Denies nausea or vomiting. Afebrile. UA with signs of infection. Empiric antibiotic initiated. Patient stable for discharge with outpatient follow-up with PCP. Discussed findings and plan with patient, who acknowledges understanding and agreement. Darwin Disclaimer: Darwin Disclaimer: This electronic medical record was generated, in whole or in part, using a voice recognition dictation system. Departure Departure Impression: Primary Impression: UTI (urinary tract infection) Qualified Codes: N30.01 - Acute cystitis with hematuria Disposition: HOME, SELF-CARE Condition: STABLE Referrals: NO PCP (PCP) Patient Instructions: Urinary Tract Infection, [id number] Scripts Cephalexin (KEFLEX) 500 Mg Capsule 500 MG PO TID for 7 Days, #21 CAP Prov: CURT JOVEL DO 09/03/19 Justicifation of Admission Dx: Justifications for Admission: Justification of Admission Dx: N/A CURT JOVEL DO Sep 03, 2019 06:48
[2019-09-03 06:50] LABS: RBC,URINE 20-40 /HPF (0-2); WBC,URINE 20-40 /HPF (0-4)
[2019-09-03 06:51] LABS: BACTERIA,URINE FEW /HPF (0-FEW); SQUAMOUS EPITHELIAL CELL,UR FEW /LPF
[2019-09-03] MEDS ORDERED: CEPH-264 PO (06:55)
[2019-09-03] MEDS ORDERED: CEPHALEXIN 250 MG CAPSULE. ONE (06:59)
[2019-09-03] MEDS ORDERED: CEPHALEXIN 250 MG CAPSULE. PO ONE (07:00)
[2019-09-03 07:02] VITALS: BP 140/78
== END 2019-09-03 07:05 | disposition home or self-care (01) ==
LOC: ER 06:06
DX: N30.01 Acute cystitis with hematuria (principal); J45.909 Unspecified asthma, uncomplicated; E11.9 Type 2 diabetes mellitus without complications; F17.200 Nicotine dependence, unspecified, uncomplicated; Z90.49 Acquired absence of other specified parts of digestive tract; Z90.710 Acquired absence of both cervix and uterus; Z88.0 Allergy status to penicillin; Z88.1 Allergy status to other antibiotic agents; Z88.2 Allergy status to sulfonamides
CPT/HCPCS: 81001; 87077; 87086; 87186; 99283

== ENCOUNTER 2019-10-20 18:16 | Emergency (ER) | payer SELFPAY ==
[~2019-10-20] VITALS: Ht 162.6 cm; Wt 115.0 kg
[~2019-10-20 18:16] MED LIST changes: +CEPH-264 PO
[2019-10-20 19:00] LABS: BASO % 1 % (0-3); EOS # 0.1 x10^3/uL (0.0-0.7); EOS % 2 % (0-3); HEMATOCRIT 39.8 % (36.0-47.0); HEMOGLOBIN 13.8 g/dL (12.0-15.5); LYMPH # 3.2 x10^3/uL (1.0-4.8); LYMPH % 34 % (24-48); MEAN CORPUSCULAR HEMOGLOBIN 32 pg (25-35); MEAN CORPUSCULAR HGB CONC 35 g/dL (31-37); MEAN CORPUSCULAR VOLUME 92 fL (79-100); MONO # 0.4 x10^3/uL (0.0-1.1); MONO % 5 % (0-9); NEUT # 5.5 x10^3/uL (1.8-7.7); NEUT % 59 % (31-73); PLATELET COUNT 300 x10^3/uL (140-400); RED BLOOD COUNT 4.35 x10^6/uL (3.50-5.40); RED CELL DISTRIBUTION WIDTH 14.6 % (11.5-14.5); WHITE BLOOD COUNT 9.3 x10^3/uL (4.0-11.0)
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
[2019-10-20 19:12] LABS: PROTHROMBIN TIME PATIENT 12.4 SEC (11.7-14.0)
[2019-10-20 19:25] LABS: CALCIUM 9.6 mg/dL (8.5-10.1); GFR 58.9; POTASSIUM 3.3 mmol/L (3.5-5.1)
[2019-10-20 19:31] LABS: ALBUMIN 3.1 g/dL (3.4-5.0); ALBUMIN/GLOBULIN RATIO 0.8 (1.0-1.7); TOTAL BILIRUBIN 0.3 mg/dL (0.2-1.0); TOTAL PROTEIN 7.2 g/dL (6.4-8.2)
--- NOTE | 2019-10-20 19:35 | RAD ---
Examination: PORTABLE CHEST 1V History: Reason: chest pain / Spl. Instructions: / History: Comparison/Correlation: 06/06/2018 Findings: Portable upright frontal view chest was obtained. Heart size and pulmonary vasculature are normal. No infiltrate or pleural effusion. No pneumothorax. Bony structures are unremarkable. Impression: No active disease. Electronically signed by: Gio Valdes MD (10/20/2019 7:32 PM) [id number]
[2019-10-20 20:18] LABS: BILIRUBIN,URINE NEGATIVE (NEG); CLARITY,URINE CLEAR; COLOR,URINE YELLOW; NITRITE,URINE NEGATIVE (NEG); PH,URINE 5.5 (<5.0-8.0); PROTEIN,URINE 30 mg/dL (NEG-TRACE); UROBILINOGEN,URINE 0.2 mg/dL (0.2 mg/dL)
[2019-10-20 20:24] LABS: BARBITURATES NEG (NEG); BENZODIAZEPINES NEG (NEG); CANNABINOIDS POS (NEG); COCAINE NEG (NEG); METHADONE NEG (NEG); OPIATES NEG (NEG); PHENCYCLIDINE NEG (NEG)
[2019-10-20 20:25] LABS: AMPHETAMINE/METHAMPHETAMINE POS (NEG)
[2019-10-20 20:27] LABS: RBC,URINE TNTC /HPF (0-2); SQUAMOUS EPITHELIAL CELL,UR MANY /LPF; WBC,URINE 20-40 /HPF (0-4); YEAST,URINE PRESENT /HPF
[2019-10-20 20:28] LABS: BACTERIA,URINE MODERATE /HPF (0-FEW)
[2019-10-20 20:30] VITALS: BP 151/69
--- NOTE | 2019-10-21 04:08 | EKG ---
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
== END 2019-10-20 21:02 | disposition home or self-care (01) ==
LOC: ER 18:16
DX: R06.02 Shortness of breath (principal); J45.909 Unspecified asthma, uncomplicated; E11.9 Type 2 diabetes mellitus without complications; F12.10 Cannabis abuse, uncomplicated; F17.200 Nicotine dependence, unspecified, uncomplicated; Z90.710 Acquired absence of both cervix and uterus; Z90.49 Acquired absence of other specified parts of digestive tract; Z98.890 Other specified postprocedural states; Z88.0 Allergy status to penicillin; Z88.2 Allergy status to sulfonamides; Z88.1 Allergy status to other antibiotic agents
CPT/HCPCS: 36415; 71045; 80053; 80307; 81001; 83690; 83880; 84484; 85025; 85610; 87086; 93005; 99285

== ENCOUNTER 2020-02-15 16:35 | Emergency (ER) | payer SELFPAY ==
[~2020-02-15] VITALS: Ht 162.6 cm; Wt 120.4 kg
--- NOTE | 2020-02-15 17:38 | RAD ---
EXAM: Chest, single view. HISTORY: Shortness of breath. COMPARISON: 10/20/2019 FINDINGS: A frontal view of the chest is obtained. There is lingular and left lower lobe atelectasis or interstitial infiltrate. There is no consolidation, pleural effusion or pneumothorax. The heart is normal in size. IMPRESSION: Lingular and left lower lobe atelectasis or interstitial infiltrate. Electronically signed by: Luz Cooney MD (02/15/2020 5:36 PM) [id number]
[2020-02-15] MEDS ORDERED: PRED50TA PO (18:18)
[2020-02-15] MEDS ORDERED: ALBU2.5V8 IH (18:18)
[2020-02-15] MEDS ORDERED: BENZ100C PO (18:18)
[2020-02-15] MEDS ORDERED: AZIT250T6 PO (18:18)
--- NOTE | 2020-02-15 18:18 | PHYS DOC ---
Past Medical History Past Medical History: Asthma, Diabetes-Type II Additional Past Medical Histor: obesity; seasonal allergies; vertigo Past Surgical History: Cholecystectomy, , Hysterectomy Additional Past Surgical Histo: c section x 5, Smoking Status: Current Every Day Smoker Alcohol Use: Occasionally Drug Use: Marijuana, Methamphetamine General Adult EDM: Chief Complaint: MULTIPLE COMPLAINTS HPI: HPI: Patient is a 49 year old female with history of asthma, diabetes type 2, current smoker, who presents to the ED today complaining of sore throat, cough, shortness of breath, symptoms for 3 days. Patient denies any fever. She also reports 8 out of 10 sharp intermittent bilateral ear pain worse on the right side for 2 days. Denies anything specifically exacerbating or relieving her symptoms. Review of Systems: Review of Systems: Constitutional: Denies fever or chills. [] Eyes: Denies change in visual acuity. [] HENT: Reports sore throat. Reports bilateral ear pain. Denies nasal congestion Respiratory: Reports cough and shortness of breath. [] Cardiovascular: Denies chest pain or edema. [] GI: Denies abdominal pain, nausea, vomiting, bloody stools or diarrhea. [] : Denies dysuria. [] Musculoskeletal: Denies back pain or joint pain. [] Integument: Denies rash. [] Neurologic: Denies headache, focal weakness or sensory changes. [] Psychiatric: Denies depression or anxiety. [] Heart Score: Risk Factors: Risk Factors: DM, Current or recent (<one month) smoker, HTN, HLP, family history of CAD, obesity. Risk Scores: Score 0 - 3: 2.5% MACE over next 6 weeks - Discharge Home Score 4 - 6: 20.3% MACE over next 6 weeks - Admit for Clinical Observation Score 7 - 10: 72.7% MACE over next 6 weeks - Early Invasive Strategies Allergies: Allergies: Allergies Coded Allergies Type Severity Reaction Last Updated Verified Penicillins Allergy Intermediate Nausea and Vomiting 10/10/15 Yes Sulfa (Sulfonamide Antibiotics) Allergy Intermediate Nausea and Vomiting 10/10/15 Yes doxycycline Allergy Intermediate Nausea and Vomiting 10/10/15 Yes Physical Exam: PE: Constitutional: Well developed, well nourished, no acute distress, non-toxic appearance. [] HENT: Normocephalic, atraumatic, bilateral external ears normal, oropharynx moist, no oral exudates, nose normal. [] Eyes: PERRLA, EOMI, conjunctiva normal, no discharge. [] Neck: Normal range of motion, no tenderness, supple, no stridor. [] Cardiovascular:Heart rate regular rhythm, no murmur [] Lungs & Thorax: Bilateral breath sounds clear to auscultation [] Abdomen: Bowel sounds normal, soft, no tenderness, no masses, no pulsatile m asses. [] Skin: Warm, dry, no erythema, no rash. [] Back: No tenderness, no CVA tenderness. [] Extremities: No tenderness, no cyanosis, no clubbing, ROM intact, no edema. [] Neurologic: Alert and oriented X 3, normal motor function, normal sensory function, no focal deficits noted. [] Psychologic: Affect normal, judgement normal, mood normal. [] Current Patient Data: Vital Signs: Vital Signs Date Time Temp Pulse Resp B/P (MAP) Pulse Ox O2 Delivery O2 Flow Rate FiO2 02/15/20 17:36 98.3 77 24 159/74 (102) 98 Room Air 98.3 EKG: EKG: [] Radiology/Procedures: Radiology/Procedures: []PROCEDURE: CHEST AP ONLY EXAM: Chest, single view. HISTORY: Shortness of breath. COMPARISON: 10/20/2019 FINDINGS: A frontal view of the chest is obtained. There is lingular and left lower lobe atelectasis or interstitial infiltrate. There is no consolidation, pleural effusion or pneumothorax. The heart is normal in size. IMPRESSION: Lingular and left lower lobe atelectasis or interstitial infiltrate. Electronically signed by: Luz Cooney MD (02/15/2020 5:36 PM) [id number] DICTATED and SIGNED BY: LUZ COONEY MD DATE: 02/15/20 [id number] 0 Course & Med Decision Making: Course & Med Decision Making Pertinent Labs and Imaging studies reviewed. (See chart for details) This is a 49-year-old female patient presenting to the ED today complaining of cough, shortness of breath, sore throat, bilateral ear pain, symptoms for 2 days. O2 sats 95% on room air and above. COVID-19 test was obtained and is pending. Chest x-ray was noted for lingular and left lower lobe atelectasis or interstitial infiltrate. Discharge to home with prednisone, albuterol inhaler, Tessalon Perles, and azithromycin. Encouraged to consider smoking cessation. Follow-up with PCP next week, provided return precautions. Darwin Disclaimer: Darwin Disclaimer: This electronic medical record was generated, in whole or in part, using a voice recognition dictation system. Departure Departure Impression: Primary Impression: Left lower lobe pneumonia Qualified Codes: J18.9 - Pneumonia, unspecified organism Additional Impressions: Person under investigation for COVID-19 Otalgia of both ears Acute pharyngitis Qualified Codes: J02.9 - Acute pharyngitis, unspecified Smoking addiction Disposition: DC HOME SELF CARE/HOMELESS Condition: STABLE Referrals: NO PCP (PCP) Follow-up with your doctor in 1 to 2 weeks Patient Instructions: Pneumonia, Adult, Smoking Cessation Additional Instructions: You were evaluated in the emergency room and noted to have left lower lobe pneumonia, you were tested for COVID-19, we will call you in the next couple days with results, quarantine yourself until then, maintain good hand hygiene. We also put on antibiotics and prednisone. Take them as prescribed. Follow-up with your doctor in the course of next week. Come back to the ED at any point symptoms worsen, consider smoking cessation. Scripts Albuterol Sulfate (PROAIR HFA INHALER) 8.5 Gm Hfa.aer.ad 2 PUFF IH PRN Q4-6HRS PRN for wheezing for 21 Days, #1 INHALER 0 Refills Prov: ARSLAN RODRIGUEZ APRN 02/15/20 Benzonatate (TESSALON PERLE) 100 Mg Capsule 1 CAP PO TID, #21 CAP Prov: ARSLAN RODRIGUEZ APRN 02/15/20 Azithromycin (AZITHROMYCIN TABLET) 250 Mg Tablet 1 PKG PO UD for 5 Days, #6 TAB 0 Refills 2 the first day followed by 1 for days 2-5 Prov: ARSLAN RODRIGUEZ APRN 02/15/20 Prednisone (PREDNISONE) 50 Mg Tablet 1 TAB PO DAILY, #5 TAB Prov: ARSLAN RODRIGUEZ PHYSICIAN RELATIONS SPECIALIST 02/15/20 ARSLAN RODRIGUEZ APRN Feb 15, 2020 18:18
[2020-02-15 18:36] VITALS: BP 143/75
--- NOTE | 2020-02-17 14:52 | NUR ---
IP: Attempted to contact pt concerning COVID results. No answer. Left a voicemail to return the call.
--- NOTE | 2020-02-17 15:46 | NUR ---
IP: Pt returned the call and I informed her of the negative COVID test. Pt verbalized understanding.
== END 2020-02-15 18:46 | disposition home or self-care (01) ==
LOC: ER 16:35
DX: J18.9 Pneumonia, unspecified organism (principal); J02.9 Acute pharyngitis, unspecified; H92.03 Otalgia, bilateral; Z20.828 Contact with and (suspected) exposure to other viral communicable diseases; J45.909 Unspecified asthma, uncomplicated; E11.9 Type 2 diabetes mellitus without complications; F17.200 Nicotine dependence, unspecified, uncomplicated; Z88.0 Allergy status to penicillin; Z88.1 Allergy status to other antibiotic agents; Z88.2 Allergy status to sulfonamides
CPT/HCPCS: 71045; 87880; 99285; C9803; U0003

== ENCOUNTER 2020-09-21 13:33 | Emergency (ER) | payer SELFPAY ==
[~2020-09-21] VITALS: Ht 162.6 cm; Wt 109.6 kg
[~2020-09-21 13:33] MED LIST changes: +ALBU2.5V8 IH; +AZIT250T6 PO
[2020-09-21 14:55] VITALS: BP 143/75
[2020-09-21 15:47] LABS: BILIRUBIN,URINE NEGATIVE (NEG); CLARITY,URINE CLOUDY; COLOR,URINE YELLOW; NITRITE,URINE POSITIVE (NEG); PROTEIN,URINE 30 mg/dL (NEG-TRACE); UROBILINOGEN,URINE 0.2 mg/dL (0.2 mg/dL)
[2020-09-21] MEDS ORDERED: FLUCONAZOLE 100 MG TABLET. PO ONE (16:00)
[2020-09-21 16:03] LABS: BACTERIA,URINE MANY /HPF (0-FEW)
[2020-09-21 16:04] LABS: WBC,URINE >40 /HPF (0-4)
--- NOTE | 2020-09-21 16:05 | PHYS DOC ---
Past Medical History Past Medical History: Asthma, Diabetes-Type II Additional Past Medical Histor: obesity; seasonal allergies; vertigo,NEUROPATHY Past Surgical History: Cholecystectomy, , Hysterectomy Additional Past Surgical Histo: c section x 5, Smoking Status: Current Every Day Smoker Alcohol Use: Occasionally Drug Use: Marijuana, Methamphetamine General Adult EDM: Chief Complaint: PAIN ON URINATION HPI: HPI: Patient is a 50 year old female who present to ER for evaluation of frequent urination with burning sensation for 2 weeks. Patient also complained of vaginal itching. Patient has a history of diabetic, she is on medication for it. Patient denies cough or any fever. Patient denies any abdominal pain, no nausea vomiting . patient denies any chest pain or any trouble breathing. Review of Systems: Review of Systems: Constitutional: Denies fever or chills. [] Eyes: Denies change in visual acuity. [] HENT: Denies nasal congestion or sore throat. [] Respiratory: Denies cough or shortness of breath. [] Cardiovascular: Denies chest pain or edema. [] GI: Denies abdominal pain, nausea, vomiting, bloody stools or diarrhea. [] : Positive for frequency and urgency Musculoskeletal: Denies back pain or joint pain. [] Integument: Denies rash. [] Neurologic: Denies headache, focal weakness or sensory changes. [] Endocrine: Denies polyuria or polydipsia. [] Lymphatic: Denies swollen glands. [] Psychiatric: Denies depression or anxiety. [] Heart Score: C/O Chest Pain: N/A Risk Factors: Risk Factors: DM, Current or recent (<one month) smoker, HTN, HLP, family history of CAD, obesity. Risk Scores: Score 0 - 3: 2.5% MACE over next 6 weeks - Discharge Home Score 4 - 6: 20.3% MACE over next 6 weeks - Admit for Clinical Observation Score 7 - 10: 72.7% MACE over next 6 weeks - Early Invasive Strategies Current Medications: Current Medications Medications (Trade) Dose Ordered Sig/Hayden Start Time Stop Time Status Last Admin Dose Admin Fluconazole (Diflucan) 150 mg 1X ONCE 09/21/20 16:00 09/21/20 16:01 Allergies: Allergies: Allergies Coded Allergies Type Severity Reaction Last Updated Verified Penicillins Allergy Intermediate Nausea and Vomiting 10/10/15 Yes Sulfa (Sulfonamide Antibiotics) Allergy Intermediate Nausea and Vomiting 10/10/15 Yes doxycycline Allergy Intermediate Nausea and Vomiting 10/10/15 Yes Physical Exam: PE: Constitutional: Well developed, well nourished, no acute distress, non-toxic appearance. [] HENT: Normocephalic, atraumatic, bilateral external ears normal, oropharynx moist, no oral exudates, nose normal. [] Eyes: PERRLA, EOMI, conjunctiva normal, no discharge. [] Neck: Normal range of motion, no tenderness, supple, no stridor. [] Cardiovascular:Heart rate regular rhythm, no murmur [] Lungs & Thorax: Bilateral breath sounds clear to auscultation [] Abdomen: Bowel sounds normal, soft, no tenderness, no masses, no pulsatile masses. [] Skin: Warm, dry, no erythema, no rash. [] Back: No tenderness, no CVA tenderness. [] Extremities: No tenderness, no cyanosis, no clubbing, ROM intact, no edema. [] Neurologic: Alert and oriented X 3, normal motor function, normal sensory function, no focal deficits noted. [] Psychologic: Affect normal, judgement normal, mood normal. [] Current Patient Data: Labs: Laboratory Tests Test 09/21/20 14:55 Urine Collection Type Unknown Urine Color Yellow Urine Clarity Cloudy Urine pH 7.0 Urine Specific [place] >=1.030 Urine Protein 30 mg/dL Urine Glucose (UA) >=1000 mg/dL Urine Ketones (Stick) Negative mg/dL Urine Blood Large Urine Nitrite Positive Urine Bilirubin Negative Urine Urobilinogen Dipstick 0.2 mg/dL Urine Leukocyte Esterase Small Urine RBC 6-10 /HPF Urine WBC >40 /HPF Urine Squamous Epithelial Cells Many /LPF Urine Bacteria Many /HPF Current Medications Medications (Trade) Dose Ordered Sig/Hayden Route PRN Reason Start Time Stop Time Status Last Admin Dose Admin Fluconazole (Diflucan) 150 mg 1X ONCE PO 09/21/20 16:00 09/21/20 16:01 DC Vital Signs: Vital Signs Date Time Temp Pulse Resp B/P (MAP) Pulse Ox O2 Delivery O2 Flow Rate FiO2 09/21/20 14:55 22 143/75 (97) Room Air EKG: EKG: [] Radiology/Procedures: Radiology/Procedures: [] Course & Med Decision Making: Course & Med Decision Making Pertinent Labs and Imaging studies reviewed. (See chart for details) [] Dragon Disclaimer: Dragon Disclaimer: This electronic medical record was generated, in whole or in part, using a voice recognition dictation system. Departure Departure Impression: Primary Impression: Urinary tract infection Disposition: HOME / SELF CARE / HOMELESS Condition: STABLE Referrals: NO PCP (PCP) Follow up with your doctor next week. Patient Instructions: Urinary Tract Infection Additional Instructions: Thank you for visiting our Emergency Department. We appreciate you trusting us with your care. If any additional problems come up don't hesitate to return to visit us. Please follow up with your primary care provider so they can plan additional care if needed and know about the problem that you had. If symptoms worsen come back to the Emergency Department. Any concerning symptoms that start such as chest pain, shortness of air, weakness or numbness on one side of the body, running high fevers or any other concerning symptoms return to the ER. Scripts Fluconazole (DIFLUCAN) 150 Mg Tablet 1 TAB PO ONCE, #1 TAB 1 Refill take this medication after you finish taking the antibiotic. Prov: BHAVNA SPRINGER DO 09/21/20 Ciprofloxacin Hcl (CIPRO) 500 Mg Tablet 1 TAB PO BID for 7 Days, #14 TAB 0 Refills Prov: BHAVNA SPRINGER DO 09/21/20 BHAVNA SPRINGER DO Sep 21, 2020 16:04
[2020-09-21] MEDS ORDERED: CIPR500T94 PO (16:11)
[2020-09-21] MEDS ORDERED: FLUC150T PO (16:11)
== END 2020-09-21 16:44 | disposition home or self-care (01) ==
LOC: ER 13:33
DX: N39.0 Urinary tract infection, site not specified (principal); E11.40 Type 2 diabetes mellitus with diabetic neuropathy, unspecified; J45.909 Unspecified asthma, uncomplicated; F17.200 Nicotine dependence, unspecified, uncomplicated; Z90.49 Acquired absence of other specified parts of digestive tract; Z90.710 Acquired absence of both cervix and uterus; Z88.0 Allergy status to penicillin; Z88.1 Allergy status to other antibiotic agents; Z88.2 Allergy status to sulfonamides
CPT/HCPCS: 81001; 87086; 99283

== ENCOUNTER 2020-10-03 23:11 | Emergency (ER) | payer SELFPAY ==
[~2020-10-03] VITALS: Ht 162.6 cm; Wt 101.8 kg
[~2020-10-03 23:11] MED LIST changes: +CIPR500T94 PO; +FLUC150T PO
[2020-10-04] MEDS ORDERED: CLINDAMYCIN 900MG PREMIX 50 ML IV ONE (00:15)
--- NOTE | 2020-10-04 00:24 | PHYS DOC ---
Past Medical History Past Medical History: Asthma, Diabetes-Type II Additional Past Medical Histor: obesity; seasonal allergies; vertigo,NEUROPATHY Past Surgical History: Cholecystectomy, , Hysterectomy Additional Past Surgical Histo: c section x 5, Smoking Status: Current Every Day Smoker Alcohol Use: Occasionally Drug Use: Marijuana, Methamphetamine General Adult EDM: Chief Complaint: MULTIPLE COMPLAINTS HPI: HPI: Patient is a 50 year old female with history of diabetes who presents with left sided swelling over her mandible. Has been present for 2 days and has been quickly enlarging. Has pain with eating and opening her mouth. Has not had difficulty with secretions. Does report some subjective fevers and chills. She has a dentist appointment on , states they could not get her in sooner. She has had 1 previous dental infection requiring antibiotics in the past. Denies having a dental abscess in the past. About the same time the started 2 days ago, she has had substernal chest pain. Described as sharp. Fairly constant. Not exertional or pleuritic. Review of Systems: Review of Systems: Constitutional: Denies fever or chills. [] Eyes: Denies change in visual acuity. [] HENT: Dental infection and pain [] Respiratory: Denies cough or shortness of breath. [] Cardiovascular: Reports chest pain. Denies edema. [] GI: Denies abdominal pain, nausea, vomiting, bloody stools or diarrhea. [] : Denies dysuria. [] Musculoskeletal: Denies back pain or joint pain. [] Integument: Denies rash. [] Neurologic: Denies headache, focal weakness or sensory changes. [] Endocrine: Denies polyuria or polydipsia. [] Lymphatic: Denies swollen glands. [] Psychiatric: Denies depression or anxiety. [] Heart Score: C/O Chest Pain: Yes HEART Score for Chest Pain: HEART Score for Chest Pain Response (Comments) Value History Slighlty/Non-Suspicious 0 ECG Normal 0 Age >45 - < 65 1 Risk Factors 1 or 2 Risk Factors 1 Total 2 Risk Factors: Risk Factors: DM, Current or recent (<one month) smoker, HTN, HLP, family history of CAD, obesity. Risk Scores: Score 0 - 3: 2.5% MACE over next 6 weeks - Discharge Home Score 4 - 6: 20.3% MACE over next 6 weeks - Admit for Clinical Observation Score 7 - 10: 72.7% MACE over next 6 weeks - Early Invasive Strategies Current Medications: Current Medications Medications (Trade) Dose Ordered Sig/Hayden Start Time Stop Time Status Last Admin Dose Admin Clindamycin Phosphate 50 ml @ 100 mls/hr 1X ONCE 10/04/20 00:15 10/04/20 00:44 UNV Allergies: Allergies: Allergies Coded Allergies Type Severity Reaction Last Updated Verified Penicillins Allergy Intermediate Nausea and Vomiting 10/10/15 Yes Sulfa (Sulfonamide Antibiotics) Allergy Intermediate Nausea and Vomiting 10/10/15 Yes doxycycline Allergy Intermediate Nausea and Vomiting 10/10/15 Yes ciprofloxacin Allergy Unknown Nausea and Vomiting 10/04/20 Yes Physical Exam: PE: Constitutional: Well developed, well nourished, no acute distress, non-toxic appearance. [] HENT: Induration and edema overlying the left mandible. Fractured tooth on left mandible likely source. Slightly limited mouth opening, but not trismus. No stridor. She does have slight submental tenderness and fullness. [] Eyes: PERRLA, EOMI, conjunctiva normal, no discharge. [] Neck some pain with range of motion. [] Cardiovascular:Heart rate regular rhythm, no murmur [] Lungs & Thorax: Bilateral breath sounds clear to auscultation [] Abdomen: Bowel sounds normal, soft, no tenderness, no masses, no pulsatile masses. [] Skin: Warm, dry, no erythema, no rash. [] Extremities: No tenderness, no cyanosis, no clubbing, ROM intact, no edema. [] Neurologic: Alert and oriented X 3, normal motor function, normal sensory function, no focal deficits noted. [] Psychologic: Affect normal, judgement normal, mood normal. [] EKG: EKG: Sinus rhythm. Rate 82. Normal axis. Normal intervals. No acute ischemic changes. [] Radiology/Procedures: Radiology/Procedures: CT neck soft tissues with contrast [] Impression: [facility] [address] [place] [address] IMAGING REPORT Signed PATIENT: CHARISMA CARMEN ACCOUNT: [id number] : 1970 LOCATION: ER AGE: 50 SEX: F EXAM STATUS: REG ER ORD. PHYSICIAN: AUDREY MEDINA MD REASON: left mandibular abscess ;OMNI 300,70 ML PROCEDURE: CT SOFT TISSUE NECK W/CONTRAST PQRS Compliance Statement: One or more of the following individualized dose reduction techniques were utilized for this examination: 1. Automated exposure control 2. Adjustment of the mA and/or kV according to patient size 3. Use of iterative reconstruction technique CT NECK SOFT TISSUE WITH IV CONTRAST Clinical Indication: Reason: left mandibular abscess ; Comparison: None. TECHNIQUE: Helical CT imaging of the soft tissues of the neck is performed after 70 cc of Omnipaque 300 IV contrast. Findings: The visualized globes and orbits are intact. The paranasal sinuses and mastoid air cells are clear. The anterior mandible is incompletely included in the [id number]. There is moderate subcutaneous induration inferior and lateral to the left mandible. There are dental cavities of the left mandible first and second premolars. There is a sliver of fluid with rim enhancement lateral to the mandible at this location that measures 1.4 cm AP by 0.3 cm transverse by 0.6 cm craniocaudal. Finding seen on axial image 48, coronal image 6. There are 2 5 mm in size left submandibular lymph nodes. There is no adenopathy. The thyroid, submandibular, and parotid glands are symmetric. The epiglottis, aryepiglottic folds, vallecula, and piriform sinuses are normal. There is a 4 mm nodule in the left lung apex, image 16. The thoracic spine alignment is maintained. There are mild degenerative changes. IMPRESSION: 1. There are dental cavities of the first and second left mandible premolars. There is a tiny associated periodontal abscess. There is moderate subcutaneous induration lateral and inferior to the left mandible that may be reactive to this process or may be cellulitis. Electronically signed by: Saeed العلي MD (10/04/2020 1:52 AM) [facility] DICTATED and SIGNED BY: SAEED العلي MD DATE: 10/04/20 [id number] 0 Course & Med Decision Making: Course & Med Decision Making Pertinent Labs and Imaging studies reviewed. (See chart for details) Patient a 50-year-old female who presents with 2 days of a left mandibular swelling that has been progressive in size. Appears to be odontogenic with correlating fractured tooth. She does have some submental fullness and tenderness concerning for developing Siddharth's so will obtain CT neck/soft tissues w/ Contrast. Multiple medication allergies, so will given IV clindamycin. Also complains of CP, ekg non-ischemic, HEART score 2 prior to troponin. If negative feel no further ACS work up will be indicated. [address] revealed only a tiny odontogenic abscess with surrounding cellulitic changes. With these findings I feel it is appropriate to treat her with ongoing p.o. antibiotics and advise close outpatient dental follow-up. She has an appointment on , I will asked that she calls her dentist to see if this can be moved up. 0210 Darwin Disclaimer: Darwin Disclaimer: This electronic medical record was generated, in whole or in part, using a voice recognition dictation system. Departure Departure Impression: Primary Impression: Dental abscess Disposition: HOME / SELF CARE / HOMELESS Condition: STABLE Referrals: NO PCP (PCP) Additional Instructions: Your CT scan showed multiple cavities, and a small dental abscess with surrounding inflammation. I would like you to see a dentist as soon as possible. Please call your dentist and see if they can move up your appointment. In the meantime please take clindamycin 450 mg every 8 hours for 7 days. This may need to be continued if your dentist feels that you need ongoing treatment. If you develop shortness of breath, inability to swallow, or other new/concerning symptoms please return to the emergency department for reeva luation. Scripts Clindamycin Hcl (CLINDAMYCIN HCL) 150 Mg Capsule 450 MG PO TID for 7 Days, #63 CAP Prov: AUDREY MEDINA MD 10/04/20 AUDREY MEDINA MD Oct 04, 2020 00:24
[2020-10-04] MEDS ORDERED: IOHEXOL 300 MG/ML 100ML VIAL. IV ONE (00:30)
[2020-10-04 00:43] LABS: BASO # 0.1 x10^3/uL (0.0-0.2); BASO % 0 % (0-3); EOS % 0 % (0-3); HEMATOCRIT 44.7 % (36.0-47.0); HEMOGLOBIN 15.5 g/dL (12.0-15.5); LYMPH # 1.6 x10^3/uL (1.0-4.8); LYMPH % 13 % (24-48); MEAN CORPUSCULAR HEMOGLOBIN 31 pg (25-35); MEAN CORPUSCULAR HGB CONC 35 g/dL (31-37); MEAN CORPUSCULAR VOLUME 89 fL (79-100); MONO # 0.5 x10^3/uL (0.0-1.1); MONO % 4 % (0-9); NEUT # 10.1 x10^3/uL (1.8-7.7); NEUT % 83 % (31-73); PLATELET COUNT 256 x10^3/uL (140-400); RED BLOOD COUNT 5.02 x10^6/uL (3.50-5.40); RED CELL DISTRIBUTION WIDTH 13.8 % (11.5-14.5); WHITE BLOOD COUNT 12.3 x10^3/uL (4.0-11.0)
[2020-10-04] MEDS ORDERED: CONTRAST GIVEN. MC PRN (00:45)
[2020-10-04 00:53] LABS: CALCIUM 9.3 mg/dL (8.5-10.1); CREATININE 0.8 mg/dL (0.6-1.0); GFR 75.9
[2020-10-04 00:59] LABS: ALBUMIN 3.4 g/dL (3.4-5.0); ALBUMIN/GLOBULIN RATIO 0.8 (1.0-1.7); TOTAL BILIRUBIN 0.6 mg/dL (0.2-1.0); TOTAL PROTEIN 7.8 g/dL (6.4-8.2)
--- NOTE | 2020-10-04 01:54 | RAD ---
PQRS Compliance Statement: One or more of the following individualized dose reduction techniques were utilized for this examinat ion: 1. Automated exposure control 2. Adjustment of the mA and/or kV according to patient size 3. Use of iterative reconstruction technique CT NECK SOFT TISSUE WITH IV CONTRAST Clinical Indication: Reason: left mandibular abscess ; Comparison: None. TECHNIQUE: Helical CT imaging of the soft tissues of the neck is performed after 70 cc of Omnipaque 3 00 IV contrast. Findings: The visualized globes and orbits are intact. The paranasal sinuses and mastoid air cells are clear. The anterior mandible is incompletely included in the [id number]. There is moderate subcutaneous i nduration inferior and lateral to the left mandible. There are dental cavities of the left mandible f irst and second premolars. There is a sliver of fluid with rim enhancement lateral to the mandible at this location that measures 1.4 cm AP by 0.3 cm transverse by 0.6 cm craniocaudal. Finding seen on a xial image 48, coronal image 6. There are 2 5 mm in size left submandibular lymph nodes. There is no adenopathy. The thyroid, submandibular, and parotid glands are symmetric. The epiglottis, aryepiglottic folds, va llecula, and piriform sinuses are normal. There is a 4 mm nodule in the left lung apex, image 16. The thoracic spine alignment is maintained. There are mild degenerative changes. IMPRESSION: 1. There are dental cavities of the first and second left mandible premolars. There is a tiny associ ated periodontal abscess. There is moderate subcutaneous induration lateral and inferior to the left mandible that may be reactive to this process or may be cellulitis. Electronically signed by: Saeed العلي MD (10/04/2020 1:52 AM) [facility]
[2020-10-04] MEDS ORDERED: CLIN150C16 PO (02:13)
[2020-10-04 02:17] VITALS: BP 186/87
== END 2020-10-04 03:05 | disposition home or self-care (01) ==
LOC: ER 23:11
DX: K04.7 Periapical abscess without sinus (principal); J45.909 Unspecified asthma, uncomplicated; E11.40 Type 2 diabetes mellitus with diabetic neuropathy, unspecified; F17.200 Nicotine dependence, unspecified, uncomplicated; Z88.0 Allergy status to penicillin; Z88.1 Allergy status to other antibiotic agents; Z88.2 Allergy status to sulfonamides
CPT/HCPCS: 36415; 70491; 80053; 84484; 85025; 96365; 99285; J3490; Q9967

== ENCOUNTER 2020-10-26 23:00 | Emergency (ER) | payer SELFPAY ==
[~2020-10-26 23:00] MED LIST changes: +CLIN150C16 PO
[2020-10-27] MEDS ORDERED: DOXY100C3 PO (17:10)
[2020-10-27] MEDS ORDERED: LIDO30CR2 TP (17:10)
[2020-10-27] MEDS ORDERED: NYST15CR TP (17:10)
[2020-10-27] MEDS ORDERED: FLUC150T PO (17:10)
[2020-10-27] MEDS ORDERED: AZIT500T4 PO (17:27)
== END 2020-10-27 03:09 | disposition left against medical advice (07) ==
LOC: ER 23:00
DX: Z20.2 Contact with and (suspected) exposure to infections with a predominantly sexual mode of transmission (principal); Z53.21 Procedure and treatment not carried out due to patient leaving prior to being seen by health care provider
CPT/HCPCS: 81025

== ENCOUNTER 2020-10-27 13:07 | Emergency (ER) | payer SELFPAY ==
[~2020-10-27] VITALS: Ht 162.6 cm; Wt 101.0 kg
[2020-10-27 14:03] LABS: BILIRUBIN,URINE NEGATIVE (NEG); CLARITY,URINE CLOUDY; COLOR,URINE YELLOW; NITRITE,URINE NEGATIVE (NEG); PH,URINE 6.5 (<5.0-8.0); PROTEIN,URINE NEGATIVE (NEG-TRACE); UROBILINOGEN,URINE 0.2 mg/dL (0.2 mg/dL)
[2020-10-27 14:32] LABS: WBC,URINE >40 /HPF (0-4)
[2020-10-27 14:33] LABS: BACTERIA,URINE MANY /HPF (0-FEW)
[2020-10-27 14:42] LABS: BASO % 0 % (0-3); EOS # 0.1 x10^3/uL (0.0-0.7); EOS % 2 % (0-3); HEMATOCRIT 41.2 % (36.0-47.0); HEMOGLOBIN 14.1 g/dL (12.0-15.5); LYMPH # 2.1 x10^3/uL (1.0-4.8); LYMPH % 27 % (24-48); MEAN CORPUSCULAR HEMOGLOBIN 31 pg (25-35); MEAN CORPUSCULAR HGB CONC 34 g/dL (31-37); MEAN CORPUSCULAR VOLUME 90 fL (79-100); MONO # 0.4 x10^3/uL (0.0-1.1); MONO % 5 % (0-9); NEUT # 5.1 x10^3/uL (1.8-7.7); NEUT % 66 % (31-73); PLATELET COUNT 233 x10^3/uL (140-400); RED BLOOD COUNT 4.57 x10^6/uL (3.50-5.40); RED CELL DISTRIBUTION WIDTH 13.9 % (11.5-14.5); WHITE BLOOD COUNT 7.8 x10^3/uL (4.0-11.0)
[2020-10-27 14:54] LABS: CALCIUM 8.8 mg/dL (8.5-10.1); CREATININE 0.9 mg/dL (0.6-1.0); GFR 66.3
[2020-10-27] MEDS ORDERED: ONDANSETRON PF 4 MG/2 ML VIAL. IVP ONE (15:00)
[2020-10-27] MEDS ORDERED: IV NORMAL SALINE 1000ML BAG 1,000 ML IV ONE ×2 (15:00→15:15)
[2020-10-27 15:01] LABS: ALBUMIN 2.9 g/dL (3.4-5.0); ALBUMIN/GLOBULIN RATIO 0.7 (1.0-1.7); TOTAL BILIRUBIN 0.2 mg/dL (0.2-1.0); TOTAL PROTEIN 7.1 g/dL (6.4-8.2)
[2020-10-27] MEDS ORDERED: INSULIN REGULAR 100 UNIT/ML 3ML VIAL. IV ONE (15:15)
[2020-10-27] MEDS ORDERED: FLUCONAZOLE 100 MG TABLET. PO ONE (15:15)
[2020-10-27] MEDS ORDERED: metroNIDAZOLE 500 MG TABLET PO ONE (15:15)
--- NOTE | 2020-10-27 15:58 | PHYS DOC ---
Past Medical History Past Medical History: Asthma, Diabetes-Type II Additional Past Medical Histor: obesity; seasonal allergies; vertigo,NEUROPA THY, DRUG USE Past Surgical History: Cholecystectomy, , Hysterectomy Additional Past Surgical Histo: c section x 5, Smoking Status: Current Every Day Smoker Alcohol Use: Occasionally Drug Use: Marijuana, Methamphetamine General Adult EDM: Chief Complaint: SEXUALLY TRANSMITTED DISEASE HPI: HPI: Patient is a 50 year old female with history of asthma, diabetes type 2 on Januvia, who presents the ED today complaining of clitoris pain, vaginal itching and discharge symptoms have been going on for 3 days. Patient describes her pain as a tearing sensation. Reports concerns for STDs and would like to be treated. Denies any fever. She also reports dysuria. Review of Systems: Review of Systems: Constitutional: Denies fever or chills. [] Eyes: Denies change in visual acuity. [] HENT: Denies nasal congestion or sore throat. [] Respiratory: Denies cough or shortness of breath. [] Cardiovascular: Denies chest pain or edema. [] GI: Denies abdominal pain, nausea, vomiting, bloody stools or diarrhea. [] : Denies dysuria. [] Female exam: Reports clitoris pain, vaginal discharge, itching Musculoskeletal: Denies back pain or joint pain. [] Integument: Denies rash. [] Neurologic: Denies headache, focal weakness or sensory changes. [] Psychiatric: Denies depression or anxiety. [] Heart Score: C/O Chest Pain: N/A Risk Factors: Risk Factors: DM, Current or recent (<one month) smoker, HTN, HLP, family history of CAD, obesity. Risk Scores: Score 0 - 3: 2.5% MACE over next 6 weeks - Discharge Home Score 4 - 6: 20.3% MACE over next 6 weeks - Admit for Clinical Observation Score 7 - 10: 72.7% MACE over next 6 weeks - Early Invasive Strategies Current Medications: Current Medications Medications (Trade) Dose Ordered Sig/Hayden Start Time Stop Time Status Last Admin Dose Admin Fluconazole (Diflucan) 150 mg 1X ONCE 10/27/20 15:15 10/27/20 15:16 DC 10/27/20 14:57 150 MG Insulin Human Regular (HumuLIN R VIAL) 8 unit 1X ONCE 10/27/20 15:15 10/27/20 15:16 DC 10/27/20 15:22 8 UNIT Metronidazole (Flagyl) 2,000 mg 1X ONCE 10/27/20 15:15 10/27/20 15:16 DC 10/27/20 14:57 2,000 MG Ondansetron HCl (Zofran) 4 mg 1X ONCE 10/27/20 15:00 10/27/20 15:01 DC 10/27/20 14:56 4 MG Sodium Chloride 1,000 ml @ 1,000 mls/hr 1X ONCE 10/27/20 15:15 10/27/20 16:14 10/27/20 15:24 1,000 MLS/HR Allergies: Allergies: Allergies Coded Allergies Type Severity Reaction Last Updated Verified Penicillins Allergy Intermediate Nausea and Vomiting 10/10/15 Yes Sulfa (Sulfonamide Antibiotics) Allergy Intermediate Nausea and Vomiting 10/10/15 Yes doxycycline Allergy Intermediate Nausea and Vomiting 10/10/15 Yes ciprofloxacin Allergy Unknown Nausea and Vomiting 10/04/20 Yes Physical Exam: PE: Constitutional: Well developed, well nourished, no acute distress, non-toxic appearance. [] HENT: Normocephalic, atraumatic, bilateral external ears normal, oropharynx moist, no oral exudates, nose normal. [] Eyes: PERRLA, EOMI, conjunctiva normal, no discharge. [] Neck: Normal range of motion, no tenderness, supple, no stridor. [] Cardiovascular:Heart rate regular rhythm, no murmur [] Lungs & Thorax: Bilateral breath sounds clear to auscultation [] Abdomen: Bowel sounds normal, soft, no tenderness, no masses, no pulsatile masses. [] Female exam External vagina is excoriated, there is white dry discharge consistent with the cutaneous candidiasis, there is a couple open wounds on the inner wall of the le ft vagina. Unable to do speculum exam due to pain. Skin: Warm, dry, no erythema, no rash. [] Back: No tenderness, no CVA tenderness. [] Extremities: No tenderness, no cyanosis, no clubbing, ROM intact, no edema. [] Neurologic: Alert and oriented X 3, normal motor function, normal sensory function, no focal deficits noted. [] Psychologic: Affect normal, judgement normal, mood normal. [] Current Patient Data: Labs: Laboratory Tests Test 9/16/21 13:51 10/27/20 14:14 10/27/20 14:26 Urine Collection Type Unknown Urine Color Yellow Urine Clarity Cloudy Urine pH 6.5 (<5.0-8.0) Urine Specific [place] >=1.030 (1.000-1.030) Urine Protein Negative mg/dL (NEG-TRACE) Urine Glucose (UA) >=1000 mg/dL (NEG) Urine Ketones (Stick) Negative mg/dL (NEG) Urine Blood Trace (NEG) Urine Nitrite Negative (NEG) Urine Bilirubin Negative (NEG) Urine Urobilinogen Dipstick 0.2 mg/dL (0.2 mg/dL) Urine Leukocyte Esterase Small (NEG) Urine RBC 6-10 /HPF (0-2) Urine WBC >40 /HPF (0-4) Urine Bacteria Many /HPF (0-FEW) Glucose (Fingerstick) 474 mg/dL (70-99) H White Blood Count 7.8 x10^3/uL (4.0-11.0) Red Blood Count 4.57 x10^6/uL (3.50-5.40) Hemoglobin 14.1 g/dL (12.0-15.5) Hematocrit 41.2 % (36.0-47.0) Mean Corpuscular Volume 90 fL (79-100) Mean Corpuscular Hemoglobin 31 pg (25-35) Mean Corpuscular Hemoglobin Concent 34 g/dL (31-37) Red Cell Distribution Width 13.9 % (11.5-14.5) Platelet Count 233 x10^3/uL (140-400) Neutrophils (%) (Auto) 66 % (31-73) Lymphocytes (%) (Auto) 27 % (24-48) Monocytes (%) (Auto) 5 % (0-9) Eosinophils (%) (Auto) 2 % (0-3) Basophils (%) (Auto) 0 % (0-3) Neutrophils # (Auto) 5.1 x10^3/uL (1.8-7.7) Lymphocytes # (Auto) 2.1 x10^3/uL (1.0-4.8) Monocytes # (Auto) 0.4 x10^3/uL (0.0-1.1) Eosinophils # (Auto) 0.1 x10^3/uL (0.0-0.7) Basophils # (Auto) 0.0 x10^3/uL (0.0-0.2) Sodium Level 134 mmol/L (136-145) L Potassium Level 4.0 mmol/L (3.5-5.1) Chloride Level 99 mmol/L (98-107) Carbon Dioxide Level 29 mmol/L (21-32) Anion Gap 6 (6-14) Blood Urea Nitrogen 7 mg/dL (7-20) Creatinine 0.9 mg/dL (0.6-1.0) Estimated GFR (Cockcroft-Gault) 66.3 BUN/Creatinine Ratio 8 (6-20) Glucose Level 457 mg/dL (70-99) H Calcium Level 8.8 mg/dL (8.5-10.1) Total Bilirubin 0.2 mg/dL (0.2-1.0) Aspartate Amino Transferase (AST) 11 U/L (15-37) L Alanine Aminotransferase (ALT) 30 U/L (14-59) Alkaline Phosphatase 122 U/L (46-116) H Total Protein 7.1 g/dL (6.4-8.2) Albumin 2.9 g/dL (3.4-5.0) L Albumin/Globulin Ratio 0.7 (1.0-1.7) L Laboratory Tests 10/27/20 14:26 Laboratory Tests 10/27/20 14:26 Vital Signs: Vital Signs Date Time Temp Pulse Resp B/P (MAP) Pulse Ox O2 Delivery O2 Flow Rate FiO2 10/27/20 13:45 98.6 87 16 152/78 (102) 97 Room Air 98.6 EKG: EKG: [] Radiology/Procedures: Radiology/Procedures: [] Course & Med Decision Making: Course & Med Decision Making Pertinent Labs and Imaging studies reviewed. (See chart for details) This is a 50-year-old female patient presented to the ED today complaining of vaginal pain and irritation as well as vaginal discharge for 3 days. Vaginal exam patient is noted to have severe cutaneous candidiasis. Patient is also concerned about STD, she was given treatment in the ED CMP with glucose of 457, patient was given 2 L of IV fluids, insulin 8 units, glucose came down to 300. She has Januvia at home. Instructed to make sure she is taking it correctly. She reports not using her insulin today. She was discharged on doxycycline, nystatin, fluconazole and lidocaine cream. Instructed to contact the PCP on Saturday and set up a follow-up appointment. Darwin Disclaimer: Darwin Disclaimer: This electronic medical record was generated, in whole or in part, using a voice recognition dictation system. Departure Departure Impression: Primary Impression: Hyperglycemia Additional Impressions: Concern about STD in female without diagnosis Vaginal candidosis Disposition: HOME / SELF CARE / HOMELESS Condition: STABLE Referrals: NO PCP (PCP) Follow-up with your primary care doctor on Saturday Patient Instructions: Candidal Vulvovaginitis, [id number], Hyperglycemia Additional Instructions: You were evaluated in the emergency room and noted to have vaginal yeast infection from high blood glucose. Please ensure you are using your diabetes medicine accurately. Please use the prescribed medications as ordered. Follow- up with your doctor next Saturday Scripts Fluconazole (DIFLUCAN) 150 Mg Tablet 1 TAB PO ONCE, #1 TAB 1 Refill Take 1 tablet tomorrow and repeat in 7 days Prov: ARSLAN RODRIGUEZ APRN 10/27/20 Lidocaine/Prilocaine (LIDOCAINE-PRILOCAINE CREAM) 30 Gm Cream..g. 1 HERRERA TP UD, #30 GM 1 Refill Apply to vaginal area as needed for vaginal pain Prov: ARSLAN RODRIGUEZ APRN 10/27/20 Nystatin (NYSTATIN) 15 Gm Cream..g. 1 HRERERA TP TID, #30 GM Prov: ARSLAN RODRIGUEZ APRN 10/27/20 Doxycycline Hyclate (DOXYCYCLINE HYCLATE) 100 Mg Capsule 1 CAP PO BID, #14 CAP take with zofran Prov: ARSLAN RODRIGUEZ APRN 10/27/20 ARSLAN RODRIGUEZ APRN Oct 27, 2020 15:58
[2020-10-27 17:00] VITALS: BP 158/70
[2020-10-27] MEDS ORDERED: LIDO30CR2 TP (17:10)
[2020-10-27] MEDS ORDERED: DOXY100C3 PO (17:10)
[2020-10-27] MEDS ORDERED: FLUC150T PO (17:10)
[2020-10-27] MEDS ORDERED: NYST15CR TP (17:10)
[2020-10-27] MEDS ORDERED: AZIT500T4 PO (17:27)
== END 2020-10-27 17:18 | disposition home or self-care (01) ==
LOC: ER 13:07
DX: B37.3 Candidiasis of vulva and vagina (principal); Z20.2 Contact with and (suspected) exposure to infections with a predominantly sexual mode of transmission; J45.909 Unspecified asthma, uncomplicated; E11.40 Type 2 diabetes mellitus with diabetic neuropathy, unspecified; E66.9 Obesity, unspecified; F17.200 Nicotine dependence, unspecified, uncomplicated; Z68.38 Body mass index [BMI] 38.0-38.9, adult; Z88.0 Allergy status to penicillin; Z88.2 Allergy status to sulfonamides; Z88.1 Allergy status to other antibiotic agents
CPT/HCPCS: 36415; 80053; 81001; 82962; 85025; 96361; 96374; 96375; 99285; J1815; J2405; J7030; 86695; 86696